=== PATIENT | female | born 1975 | race Caucasian/White ===

== ENCOUNTER 2016-09-25 05:01 | Emergency (ER) | payer MEDICAID ==
[~2016-09-25] VITALS: Ht 162.6 cm; Wt 76.0 kg
[~2016-09-25 05:01] MED LIST: GABA100C8 PO; LORA-446 PO; NYST15CR2 TP; OMEP-110 PO; POLY17PO5 PO; RISP2TAB35 PO; ZIPR20CA2 PO
[2016-09-25] MEDS ORDERED: OXYC-302 PO (05:27)
[2016-09-25] MEDS ORDERED: TRAZ100T15 PO (05:27)
[2016-09-25] MEDS ORDERED: VENL75CA PO (05:27)
[2016-09-25] MEDS ORDERED: HYDR25CA PO (05:27)
[2016-09-25] MEDS ORDERED: PRAZ1CAP2 PO (05:27)
[2016-09-25 06:00] LABS: BLOOD UREA NITROGEN 11 mg/dL (7-18)
[2016-09-25 06:02] LABS: ASPARTATE AMINO TRANSFERASE 40 U/L (15-37)
[2016-09-25 07:55] VITALS: BP 137/91
== END 2016-09-25 07:58 | disposition home or self-care (01) ==
LOC: ED 06:31
DX: R10.13 Epigastric pain (principal); I10 Essential (primary) hypertension; F29 Unspecified psychosis not due to a substance or known physiological condition; F32.9 Major depressive disorder, single episode, unspecified; Z88.0 Allergy status to penicillin; Z88.8 Allergy status to other drugs, medicaments and biological substances; Z88.5 Allergy status to narcotic agent
CPT/HCPCS: 36415; 74022; 76700; 80053; 83690; 85025; 93005

== ENCOUNTER 2017-03-18 18:52 | Emergency (ER) | payer MEDICAID ==
[~2017-03-18] VITALS: Ht 162.6 cm; Wt 73.0 kg
[~2017-03-18 18:52] MED LIST changes: +GABA-826 PO; -GABA100C8 PO; +HYDR25CA PO; +OXYC-302 PO; +PRAZ1CAP2 PO; +TRAZ100T15 PO; +VENL75CA PO
[2017-03-18 19:37] LABS: HEMATOCRIT 38.1 % (34.6-47.8); HEMOGLOBIN 12.8 g/dL (11.7-16.4); WHITE BLOOD COUNT 7.6 x10^3/uL (3.4-10)
[2017-03-18] MEDS ORDERED: LORA2TAB INJ (19:43)
[2017-03-18] MEDS ORDERED: NAPR250T6 PO (19:43)
[2017-03-18] MEDS ORDERED: CYCL5TAB PO (19:43)
[2017-03-18 19:53] LABS: BLOOD UREA NITROGEN 11 mg/dL (7-18)
[2017-03-18] MEDS ORDERED: LEVETIRACETAM 500 MG TABLET PO ONE (20:00)
[2017-03-18 21:10] VITALS: BP 128/79
== END 2017-03-18 21:25 | disposition home or self-care (01) ==
LOC: ED 21:19
DX: G40.909 Epilepsy, unspecified, not intractable, without status epilepticus (principal); I10 Essential (primary) hypertension; Z90.49 Acquired absence of other specified parts of digestive tract; F15.10 Other stimulant abuse, uncomplicated
CPT/HCPCS: 36415; 80048; 82040; 82550; 83735; 85025; 93005; 99285

== ENCOUNTER 2017-04-05 15:30 | Observation (INO) | payer MEDICAID ==
[~2017-04-05] VITALS: Ht 162.6 cm; Wt 77.3 kg
[~2017-04-05 15:30] MED LIST changes: +CYCL5TAB PO; +LORA2TAB INJ; +NAPR250T6 PO
[2017-04-05 16:29] LABS: HEMATOCRIT 40.9 % (34.6-47.8); HEMOGLOBIN 13.9 g/dL (11.7-16.4); WHITE BLOOD COUNT 6.8 x10^3/uL (3.4-10)
[2017-04-05] MEDS ORDERED: LORazepam 1MG TABLET PO ONE (16:30)
[2017-04-05 16:40] LABS: BLOOD UREA NITROGEN 10 mg/dL (7-18)
[2017-04-05] MEDS ORDERED: LORazepam 1MG TABLET ONE (16:43)
[2017-04-05 16:45] LABS: ACETAMINOPHEN < 2 mcg/mL (10-30)
[2017-04-05 16:46] LABS: DAU SCREEN DISCLAIMER
[2017-04-05] MEDS ORDERED: LORazepam 2 MG/ML, 1ML IM PRN (21:00)
[2017-04-05] MEDS ORDERED: OLANZAPINE 10 MG TABLET PO PRN (21:00)
[2017-04-05] MEDS ORDERED: DOCUSATE 100 MG CAPSULE PO PRN (21:00)
[2017-04-05 21:09] VITALS: BP 123/79
[2017-04-05] MEDS: ACETAMINOPHEN 325 MG TABLET PO PRN (22:01)
[2017-04-06 08:19] VITALS: BP 106/69
[2017-04-06] MEDS ORDERED: NICOTINE 14MG/24 HR PATCH.TD24 TD SCH ×3 (09:00)
[2017-04-06] MEDS ORDERED: NICOTINE 21 MG/24 HR PATCH.TD24 TD SCH ×6 (09:00)
[2017-04-06] MEDS: ACETAMINOPHEN 325 MG TABLET PO PRN (09:25)
== END 2017-04-06 13:50 ==
LOC: ED 16:19 → EDIP 19:36 → 3E 21:07
PROVIDERS: ADMIT Family Medicine; ATTEND Family Medicine
DX: F23 Brief psychotic disorder (principal); F15.10 Other stimulant abuse, uncomplicated; F25.9 Schizoaffective disorder, unspecified; F41.0 Panic disorder [episodic paroxysmal anxiety]; F41.1 Generalized anxiety disorder; I10 Essential (primary) hypertension; R41.82 Altered mental status, unspecified; G40.909 Epilepsy, unspecified, not intractable, without status epilepticus; Z91.14 Patient's other noncompliance with medication regimen; Z91.5 Personal history of self-harm
CPT/HCPCS: 36415; 80048; 80307; 80329; 82040; 84703; 85025; 96372; 99285; G0378; J2060; G0479; G0480

== ENCOUNTER 2017-07-30 04:54 | Emergency (ER) | payer MEDICAID ==
[~2017-07-30] VITALS: Ht 162.6 cm; Wt 77.0 kg
[2017-07-30] MEDS ORDERED: LORazepam 1MG TABLET ONE (05:28)
[2017-07-30] MEDS ORDERED: METHOCARBAMOL 750 MG TABLET ONE (05:28)
[2017-07-30] MEDS ORDERED: LORazepam 1MG TABLET PO ONE (05:30)
[2017-07-30] MEDS ORDERED: METHOCARBAMOL 750 MG TABLET PO ONE (05:30)
[2017-07-30 05:43] LABS: BASOPHILS % (AUTO) 0 % (0-1); EOSINOPHILS # (AUTO) 0.13 x10^3/uL (0-0.4); EOSINOPHILS % (AUTO) 1 % (1-7); LYMPHOCYTES # (AUTO) 2.21 x10^3/uL (1-3.4); LYMPHOCYTES % (AUTO) 21 % (22-44); MD NO; MEAN CORPUSCULAR HEMOGLOBIN 28.7 pg (27.0-34.8); MEAN CORPUSCULAR HGB CONC 33.3 g/dL (32.4-35.8); MEAN CORPUSCULAR VOLUME 86.2 fL (80-100); MEAN PLATELET VOLUME 6.9 fL (7.4-10.4); MONOCYTES % (AUTO) 6 % (2-9); NEUTROPHILS # (AUTO) 7.88 x10^3/uL (1.8-6.8); NEUTROPHILS % (AUTO) 73 % (42-75); PLATELET COUNT 423 x10^3/uL (130-400); RED BLOOD COUNT 4.65 x10^6/uL (3.82-5.3); RED CELL DISTRIBUTION WIDTH 14.3 % (9.6-15.2)
[2017-07-30 05:53] LABS: ALBUMIN 4.1 g/dL (3.4-5.0); ANION GAP 6 mmol/L (5-15); CALCIUM 8.9 mg/dL (8.5-10.1); CHLORIDE 98 mmol/L (98-107); CREATININE 0.48 mg/dL (0.55-1.02)
[2017-07-30 07:24] VITALS: BP 132/78
== END 2017-07-30 07:29 | disposition home or self-care (01) ==
LOC: ED 05:28
DX: F22 Delusional disorders (principal); F23 Brief psychotic disorder; F41.1 Generalized anxiety disorder; Z76.0 Encounter for issue of repeat prescription; G71.0 Muscular dystrophy
CPT/HCPCS: 36415; 80048; 82040; 85025; 99284

== ENCOUNTER 2017-09-28 17:53 | Observation (INO) | payer MEDICAID ==
[~2017-09-28] VITALS: Ht 162.6 cm; Wt 82.0 kg
[2017-09-28 18:39] LABS: BASOPHILS # (AUTO) 0.04 x10^3/uL (0-0.1); BASOPHILS % (AUTO) 1 % (0-1); EOSINOPHILS # (AUTO) 0.13 x10^3/uL (0-0.4); EOSINOPHILS % (AUTO) 2 % (1-7); LYMPHOCYTES # (AUTO) 2.06 x10^3/uL (1-3.4); LYMPHOCYTES % (AUTO) 27 % (22-44); MD NO; MEAN CORPUSCULAR HEMOGLOBIN 29.7 pg (27.0-34.8); MEAN CORPUSCULAR VOLUME 87.4 fL (80-100); MEAN PLATELET VOLUME 7.3 fL (7.4-10.4); MONOCYTES # (AUTO) 0.58 x10^3/uL (0.2-0.8); MONOCYTES % (AUTO) 8 % (2-9); NEUTROPHILS # (AUTO) 4.94 x10^3/uL (1.8-6.8); NEUTROPHILS % (AUTO) 64 % (42-75); PLATELET COUNT 469 x10^3/uL (130-400); RED BLOOD COUNT 4.02 x10^6/uL (3.82-5.3); RED CELL DISTRIBUTION WIDTH 14.8 % (9.6-15.2)
[2017-09-28 18:51] LABS: ALANINE AMINOTRANSFERASE 35 U/L (12-78); ALBUMIN 3.5 g/dL (3.4-5.0); ANION GAP 10 mmol/L (5-15); CALCIUM 8.1 mg/dL (8.5-10.1); CHLORIDE 103 mmol/L (98-107)
[2017-09-28 18:52] LABS: SALICYLATE LEVEL < 1.7 mg/dL (2.8-20.0)
[2017-09-28 18:55] LABS: AMPHETAMINE SCREEN, URINE Positive (Negative); BARBITURATE SCREEN, URINE Negative (Negative); BENZODIAZEPINE SCREEN, URINE Negative (Negative); CANNABINOID SCREEN, URINE Negative (Negative); COCAINE SCREEN, URINE Negative (Negative)
[2017-09-28 18:56] LABS: ALKALINE PHOSPHATASE 64 U/L (45-117); BILIRUBIN,TOTAL 0.4 mg/dL (0.2-1.0); CREATININE 0.54 mg/dL (0.55-1.02); TOTAL PROTEIN 7.4 g/dL (6.4-8.2)
[2017-09-28 18:56] LABS: METHADONE SCREEN, URINE Negative (Negative); OPIATE SCREEN, URINE Negative (Negative)
[2017-09-28 18:57] LABS: ACETAMINOPHEN < 2 mcg/mL (10-30)
[2017-09-28] MEDS ORDERED: OLAN20TA3 PO (19:34)
[2017-09-28] MEDS ORDERED: LISI-167 PO (19:34)
[2017-09-28] MEDS ORDERED: CYCL-259 PO (19:34)
[2017-09-28] MEDS ORDERED: CLOB15CR19 TD (19:34)
[2017-09-28] MEDS ORDERED: OXCA300T3 PO (19:34)
[2017-09-28] MEDS ORDERED: BENZ200C48 PO (19:34)
[2017-09-28] MEDS ORDERED: LEVE100020 PO (19:34)
[2017-09-28] MEDS ORDERED: POTASSIUM CHLORIDE 20 MEQ TAB.ER.PRT PO ONE (21:30)
[2017-09-28] MEDS ORDERED: POTASSIUM CHLORIDE 20 MEQ TAB.ER.PRT ONE (21:33)
[2017-09-28] MEDS ORDERED: ACETAMINOPHEN 325 MG TABLET PO PRN (23:00)
[2017-09-28] MEDS ORDERED: ONDANSETRON ODT 4 MG PO PRN (23:00)
[2017-09-29 00:16] VITALS: BP 134/92
[2017-09-29 07:53] VITALS: BP 130/80
[2017-09-29] MEDS: BENZONATATE 100 MG CAPSULE PO SCH ×3 (08:57→20:38)
[2017-09-29] MEDS: LEVETIRACETAM 500 MG TABLET PO SCH ×2 (08:58→20:38)
[2017-09-29] MEDS: CYCLOBENZAPRINE 10 MG TABLET PO SCH ×3 (08:58→20:38)
[2017-09-29] MEDS: OLANZAPINE 10 MG TABLET PO SCH (08:58)
[2017-09-29] MEDS: LISINOPRIL 10 MG TABLET PO SCH (08:59)
[2017-09-29] MEDS: OXCARBAZEPINE 300MG TABLET PO SCH ×2 (08:59→20:38)
[2017-09-29] MEDS: CLOBETASOL PROPIONATE CRM 0.05%, 15GM TP SCH ×2 (09:00→20:42)
[2017-09-29 14:25] LABS: ANION GAP 10 mmol/L (5-15); CALCIUM 8.3 mg/dL (8.5-10.1); CHLORIDE 106 mmol/L (98-107)
[2017-09-29 14:26] LABS: CREATININE 0.59 mg/dL (0.55-1.02)
[2017-09-29 19:49] VITALS: BP 116/80
[2017-09-30 08:23] VITALS: BP 116/79
[2017-09-30] MEDS: CYCLOBENZAPRINE 10 MG TABLET PO SCH ×2 (09:00→16:33)
[2017-09-30] MEDS: CLOBETASOL PROPIONATE CRM 0.05%, 15GM TP SCH (09:00)
[2017-09-30] MEDS: BENZONATATE 100 MG CAPSULE PO SCH ×2 (09:25→16:33)
[2017-09-30] MEDS: LEVETIRACETAM 500 MG TABLET PO SCH (09:25)
[2017-09-30] MEDS: OLANZAPINE 10 MG TABLET PO SCH (09:26)
[2017-09-30] MEDS: OXCARBAZEPINE 300MG TABLET PO SCH (09:26)
[2017-09-30] MEDS: LISINOPRIL 10 MG TABLET PO SCH (09:26)
== END 2017-09-30 15:45 ==
LOC: ED 19:52 → EDIP 22:24 → 3E 09-29 00:08
PROVIDERS: ADMIT Hospitalist; ATTEND Hospitalist
DX: R45.851 Suicidal ideations (principal); E87.6 Hypokalemia; F25.9 Schizoaffective disorder, unspecified; G40.909 Epilepsy, unspecified, not intractable, without status epilepticus; I10 Essential (primary) hypertension; F39 Unspecified mood [affective] disorder; F44.5 Conversion disorder with seizures or convulsions; Z91.5 Personal history of self-harm
CPT/HCPCS: 36415; 80048; 80053; 80307; 80329; 84703; 85025; 99285; G0378; G0480

== ENCOUNTER 2017-12-19 09:34 | Emergency (ER) | payer MEDICAID ==
[~2017-12-19] VITALS: Ht 162.6 cm; Wt 78.0 kg
[~2017-12-19 09:34] MED LIST changes: +BENZ200C48 PO; +CLOB15CR19 TD; +CYCL-259 PO; +LEVE100020 PO; +LISI-167 PO; +OLAN20TA3 PO; +OXCA300T3 PO
[2017-12-19] MEDS ORDERED: DEXTROSE 50%, 50ML SYRINGE IVPush ONE (10:30)
[2017-12-19] MEDS ORDERED: KETOROLAC 30 MG/1 ML IM ONE (10:30)
[2017-12-19] MEDS ORDERED: DEXTROSE 10% 250 ML IV SCH (10:30)
[2017-12-19] MEDS ORDERED: HYDROcodone/APAP 5/325 TABLET PO ONE (10:30)
[2017-12-19] MEDS ORDERED: KETOROLAC 30 MG/1 ML ONE (10:35)
[2017-12-19 10:47] LABS: BASOPHILS # (AUTO) 0.02 x10^3/uL (0-0.1); BASOPHILS % (AUTO) 0 % (0-1); EOSINOPHILS # (AUTO) 0.04 x10^3/uL (0-0.4); EOSINOPHILS % (AUTO) 1 % (1-7); LYMPHOCYTES # (AUTO) 1.36 x10^3/uL (1-3.4); LYMPHOCYTES % (AUTO) 19 % (22-44); MD NO; MEAN CORPUSCULAR HEMOGLOBIN 27.8 pg (27.0-34.8); MEAN CORPUSCULAR HGB CONC 33.8 g/dL (32.4-35.8); MEAN CORPUSCULAR VOLUME 82.2 fL (80-100); MEAN PLATELET VOLUME 6.5 fL (7.4-10.4); MONOCYTES # (AUTO) 0.55 x10^3/uL (0.2-0.8); MONOCYTES % (AUTO) 8 % (2-9); NEUTROPHILS # (AUTO) 5.31 x10^3/uL (1.8-6.8); NEUTROPHILS % (AUTO) 73 % (42-75); PLATELET COUNT 609 x10^3/uL (130-400); RED BLOOD COUNT 4.49 x10^6/uL (3.82-5.3); RED CELL DISTRIBUTION WIDTH 14.3 % (9.6-15.2)
[2017-12-19 10:57] LABS: ALBUMIN 3.5 g/dL (3.4-5.0); ANION GAP 8 mmol/L (5-15); CALCIUM 8.8 mg/dL (8.5-10.1); CHLORIDE 106 mmol/L (98-107); CREATININE 0.58 mg/dL (0.55-1.02); SALICYLATE LEVEL 1.9 mg/dL (2.8-20.0)
[2017-12-19 11:00] LABS: HCG UR SG 1.011 (1.003-1.030)
[2017-12-19 11:06] LABS: ACETAMINOPHEN < 2 mcg/mL (10-30)
[2017-12-19 11:24] LABS: AMPHETAMINE SCREEN, URINE Positive (Negative); BARBITURATE SCREEN, URINE Negative (Negative); BENZODIAZEPINE SCREEN, URINE Negative (Negative); CANNABINOID SCREEN, URINE Negative (Negative); COCAINE SCREEN, URINE Negative (Negative); METHADONE SCREEN, URINE Negative (Negative); OPIATE SCREEN, URINE Negative (Negative)
[2017-12-19] MEDS ORDERED: LORA-446 PO (14:24)
[2017-12-19] MEDS ORDERED: METH750T87 PO (14:24)
[2017-12-19] MEDS ORDERED: TRAZ100T15 PO (14:24)
[2017-12-19] MEDS ORDERED: BENZONATATE 200 MG PO SCH (16:00)
[2017-12-19] MEDS ORDERED: CYCLOBENZAPRINE 10 MG TABLET ONE (16:57)
[2017-12-19] MEDS ORDERED: ACETAMINOPHEN 325 MG TABLET ONE ×2 (16:57→22:52)
[2017-12-19] MEDS: CYCLOBENZAPRINE 10 MG TABLET PO PRN (16:59)
[2017-12-19] MEDS: ACETAMINOPHEN 325 MG TABLET PO PRN ×2 (16:59→22:56)
[2017-12-19] MEDS ORDERED: BENZONATATE 100 MG CAPSULE ONE (20:07)
[2017-12-19] MEDS ORDERED: LEVETIRACETAM 500 MG TABLET ONE (20:08)
[2017-12-19] MEDS: BENZONATATE 100 MG CAPSULE PO SCH (20:15)
[2017-12-19] MEDS: LEVETIRACETAM 500 MG TABLET PO SCH (20:15)
[2017-12-19] MEDS: OXCARBAZEPINE 300MG TABLET PO SCH (22:19)
[2017-12-20] MEDS ORDERED: CYCLOBENZAPRINE 10 MG TABLET ONE (03:21)
[2017-12-20] MEDS: CYCLOBENZAPRINE 10 MG TABLET PO PRN (03:24)
[2017-12-20] MEDS ORDERED: ACETAMINOPHEN 325 MG TABLET ONE (04:53)
[2017-12-20] MEDS: ACETAMINOPHEN 325 MG TABLET PO PRN ×2 (04:56→06:16)
[2017-12-20] MEDS ORDERED: LEVETIRACETAM 500 MG TABLET ONE (07:39)
[2017-12-20] MEDS ORDERED: OLANZAPINE 10 MG TABLET ONE (07:39)
[2017-12-20] MEDS ORDERED: BENZONATATE 100 MG CAPSULE ONE (07:39)
[2017-12-20] MEDS ORDERED: LISINOPRIL 10 MG TABLET ONE (07:39)
[2017-12-20] MEDS: OXCARBAZEPINE 300MG TABLET PO SCH (08:22)
[2017-12-20] MEDS: LEVETIRACETAM 500 MG TABLET PO SCH (08:22)
[2017-12-20 08:23] VITALS: BP 107/72
[2017-12-20] MEDS: BENZONATATE 100 MG CAPSULE PO SCH (08:23)
[2017-12-20] MEDS ORDERED: OLANZAPINE 10 MG TABLET PO SCH (09:00)
[2017-12-20] MEDS ORDERED: LISINOPRIL 10 MG TABLET PO SCH (09:00)
[2017-12-20] MEDS ORDERED: LORazepam 1MG TABLET PO PRN (14:00)
[2017-12-20] MEDS ORDERED: METHOCARBAMOL 750 MG TABLET PO SCH (17:00)
[2017-12-20] MEDS ORDERED: TRAZODONE 100MG TABLET PO SCH (21:00)
== END 2017-12-20 15:02 ==
LOC: ED 11:41 → UNDOADMOB 13:05 → EDIP 13:05
DX: F15.10 Other stimulant abuse, uncomplicated (principal)
CPT/HCPCS: 36415; 80048; 80307; 80329; 81025; 82040; 85025; 96372; 99285; J1885; G0480

== ENCOUNTER 2018-01-02 10:11 | Emergency (ER) | payer MEDICAID ==
[~2018-01-02] VITALS: Ht 162.6 cm; Wt 75.0 kg
[~2018-01-02 10:11] MED LIST changes: +METH750T87 PO
[2018-01-02 10:17] VITALS: BP 136/78
[2018-01-02] MEDS ORDERED: LORazepam 1MG TABLET ONE ×2 (10:45→12:21)
[2018-01-02] MEDS ORDERED: LORazepam 1MG TABLET PO ONE ×2 (11:00→12:00)
== END 2018-01-02 13:30 | disposition home or self-care (01) ==
LOC: ED 13:21
DX: F15.129 Other stimulant abuse with intoxication, unspecified (principal); I10 Essential (primary) hypertension; F41.1 Generalized anxiety disorder; F17.210 Nicotine dependence, cigarettes, uncomplicated; Z59.0 Homelessness
CPT/HCPCS: 82962; 99283

== ENCOUNTER 2018-01-24 21:26 | Emergency (ER) | payer MEDICAID ==
[~2018-01-24] VITALS: Ht 162.6 cm; Wt 76.0 kg
[~2018-01-24 21:26] MED LIST changes: +TRAZ-137 PO; -TRAZ100T15 PO
[2018-01-24] MEDS ORDERED: ONDANSETRON 2MG/ML, 2ML ONE (21:43)
[2018-01-24 21:49] LABS: BASOPHILS # (AUTO) 0.02 x10^3/uL (0-0.1); BASOPHILS % (AUTO) 0 % (0-1); EOSINOPHILS # (AUTO) 0.05 x10^3/uL (0-0.4); EOSINOPHILS % (AUTO) 1 % (1-7); LYMPHOCYTES # (AUTO) 1.73 x10^3/uL (1-3.4); LYMPHOCYTES % (AUTO) 24 % (22-44); MD NO; MEAN CORPUSCULAR HEMOGLOBIN 27.5 pg (27.0-34.8); MEAN CORPUSCULAR HGB CONC 34.5 g/dL (32.4-35.8); MEAN CORPUSCULAR VOLUME 79.8 fL (80-100); MEAN PLATELET VOLUME 6.5 fL (7.4-10.4); MONOCYTES # (AUTO) 0.86 x10^3/uL (0.2-0.8); MONOCYTES % (AUTO) 12 % (2-9); NEUTROPHILS # (AUTO) 4.57 x10^3/uL (1.8-6.8); NEUTROPHILS % (AUTO) 63 % (42-75); PLATELET COUNT 550 x10^3/uL (130-400); RED BLOOD COUNT 4.44 x10^6/uL (3.82-5.3); RED CELL DISTRIBUTION WIDTH 16.1 % (9.6-15.2)
[2018-01-24] MEDS ORDERED: ONDANSETRON 2MG/ML, 2ML IVPush ONE (22:00)
[2018-01-24] MEDS ORDERED: LEVETIRACETAM 1,000 MG in SODIUM CHLORIDE 0.9% 100 ML IV ONE (22:00)
[2018-01-24 22:02] LABS: ALBUMIN 3.6 g/dL (3.4-5.0); ANION GAP 12 mmol/L (5-15); CHLORIDE 105 mmol/L (98-107); CREATININE 0.59 mg/dL (0.55-1.02)
[2018-01-24 22:41] VITALS: BP 138/72
[2018-01-24 22:59] LABS: AMPHETAMINE SCREEN, URINE Positive (Negative); BARBITURATE SCREEN, URINE Negative (Negative); BENZODIAZEPINE SCREEN, URINE Negative (Negative); CANNABINOID SCREEN, URINE Negative (Negative); COCAINE SCREEN, URINE Negative (Negative); METHADONE SCREEN, URINE Negative (Negative); OPIATE SCREEN, URINE Negative (Negative)
== END 2018-01-24 23:30 | disposition home or self-care (01) ==
LOC: ED 22:28
DX: G40.319 Generalized idiopathic epilepsy and epileptic syndromes, intractable, without status epilepticus (principal); F15.20 Other stimulant dependence, uncomplicated; Z72.9 Problem related to lifestyle, unspecified; I10 Essential (primary) hypertension; F32.9 Major depressive disorder, single episode, unspecified; F17.200 Nicotine dependence, unspecified, uncomplicated; Z90.49 Acquired absence of other specified parts of digestive tract
CPT/HCPCS: 36415; 80048; 80307; 82040; 84703; 85025; 96374; 96375; 99284; J1953; J2405

== ENCOUNTER 2018-03-14 14:39 | Emergency (ER) | payer MEDICAID ==
[~2018-03-14] VITALS: Ht 162.6 cm; Wt 74.8 kg
[2018-03-14 15:13] LABS: BASOPHILS # (AUTO) 0.03 x10^3/uL (0-0.1); BASOPHILS % (AUTO) 0 % (0-1); EOSINOPHILS # (AUTO) 0.05 x10^3/uL (0-0.4); EOSINOPHILS % (AUTO) 1 % (1-7); LYMPHOCYTES # (AUTO) 1.39 x10^3/uL (1-3.4); LYMPHOCYTES % (AUTO) 20 % (22-44); MD NO; MEAN CORPUSCULAR HEMOGLOBIN 27.1 pg (27.0-34.8); MEAN CORPUSCULAR HGB CONC 33.6 g/dL (32.4-35.8); MEAN CORPUSCULAR VOLUME 80.5 fL (80-100); MEAN PLATELET VOLUME 6.9 fL (7.4-10.4); MONOCYTES # (AUTO) 0.44 x10^3/uL (0.2-0.8); MONOCYTES % (AUTO) 6 % (2-9); NEUTROPHILS # (AUTO) 4.95 x10^3/uL (1.8-6.8); NEUTROPHILS % (AUTO) 72 % (42-75); PLATELET COUNT 533 x10^3/uL (130-400); RED CELL DISTRIBUTION WIDTH 15.4 % (9.6-15.2)
[2018-03-14 15:22] LABS: ALANINE AMINOTRANSFERASE 22 U/L (12-78); ALBUMIN 3.5 g/dL (3.4-5.0); ANION GAP 8 mmol/L (5-15); CALCIUM 8.7 mg/dL (8.5-10.1); CHLORIDE 106 mmol/L (98-107); CREATININE 0.55 mg/dL (0.55-1.02)
[2018-03-14 15:27] LABS: ALKALINE PHOSPHATASE 80 U/L (45-117); BILIRUBIN,TOTAL 0.1 mg/dL (0.2-1.0); TOTAL PROTEIN 8.1 g/dL (6.4-8.2)
[2018-03-14 16:05] LABS: MICROSCOPIC NOT IND
[2018-03-14 16:11] LABS: CULTURE INDICATED? NO
[2018-03-14 16:30] VITALS: BP 128/86
== END 2018-03-14 17:30 | disposition home or self-care (01) ==
LOC: ED 16:28
DX: F41.1 Generalized anxiety disorder (principal); F15.10 Other stimulant abuse, uncomplicated; R53.81 Other malaise; I10 Essential (primary) hypertension; G40.909 Epilepsy, unspecified, not intractable, without status epilepticus; G35 Multiple sclerosis; Z91.14 Patient's other noncompliance with medication regimen
CPT/HCPCS: 36415; 80053; 81003; 84703; 85025; 99284

== ENCOUNTER 2018-10-16 22:24 | Emergency (ER) | payer MEDICAID ==
[~2018-10-16] VITALS: Ht 162.6 cm; Wt 69.0 kg
--- NOTE | 2018-10-16 22:45 | NUR ---
PT BROUGHT TO ROOM AND PLACED ON MONITOR. PT WAS UPSTAIRS VISITING BOYFRIEND WHO WAS YELLING AT PT. PT DECIDED TO SMOKE METH TODAY DUE TO HIS RUDENESS TO HER. PT TWITCHING CONSTANTLY OF ARMS AND LEGS. HAVING DIFFICULTY SPEAKING DUE TO GRINDING OF MOUTH.
--- NOTE | 2018-10-16 22:59 | NUR ---
PA AT BEDSIDE.
[2018-10-16] MEDS ORDERED: LORazepam 2 MG/ML, 1ML IM ONE (23:00)
[2018-10-16] MEDS ORDERED: LORazepam 2 MG/ML, 1ML ONE (23:02)
--- NOTE | 2018-10-16 23:06 | NUR ---
PT MEDICATED WITH 1MG ATIVAN IM TO HELP RELAX
--- NOTE | 2018-10-17 00:02 | NUR ---
PT SLEEPING AT THIS TIME. FREQUENT TWITCHING HAS SUBSIDED. VSS.
--- NOTE | 2018-10-17 01:08 | NUR ---
PT REMAINS SLEEPING. VITALS STABLE.
--- NOTE | 2018-10-17 02:18 | NUR ---
PT REMAINS SLEEPING. ATTEMPTED TO WAKE PT, OPES EYES BRIEFLY AND MOVES AROUND IN BED. VSS.
[2018-10-17 04:49] VITALS: BP 118/74
--- NOTE | 2018-10-17 04:49 | NUR ---
PT ABLE TO STAND AND AMBULATE. DC PAPERWORK GIVEN. TAXI VOUCHER GIVEN
== END 2018-10-17 04:51 | disposition home or self-care (01) ==
LOC: ED 23:39
DX: F19.959 Other psychoactive substance use, unspecified with psychoactive substance-induced psychotic disorder, unspecified (principal); F41.9 Anxiety disorder, unspecified; F17.210 Nicotine dependence, cigarettes, uncomplicated; F15.921 Other stimulant use, unspecified with intoxication delirium; G40.909 Epilepsy, unspecified, not intractable, without status epilepticus; I10 Essential (primary) hypertension
CPT/HCPCS: 96372; 99283; J2060

== ENCOUNTER 2019-06-19 14:09 | Emergency (ER) | payer MEDICAID ==
[~2019-06-19] VITALS: Ht 162.6 cm; Wt 70.8 kg
[2019-06-19 14:28] VITALS: BP 172/106
--- NOTE | 2019-06-19 15:05 | NUR ---
PT SITTING ON EDGE OF GURNEY AWAKE & MILDLY ANXIOUS BUT NAD, RESPONDS APPROP TO STAFF, FRIEND AT BS, COMFORT MEASURES PROVIDED, CALL LIGHT WITHIN REACHM
[2019-06-19] MEDS ORDERED: ONDANSETRON ODT 4 MG ONE (15:29)
[2019-06-19] MEDS ORDERED: LORazepam 2 MG/ML, 1ML IM ONE (15:30)
[2019-06-19] MEDS ORDERED: ONDANSETRON ODT 4 MG PO ONE (15:30)
[2019-06-19] MEDS ORDERED: LORazepam 2 MG/ML, 1ML ONE (15:30)
[2019-06-19 15:42] LABS: BASOPHILS # (AUTO) 0.02 x10^3/uL (0-0.1); BASOPHILS % (AUTO) 0 % (0-1); EOSINOPHILS # (AUTO) 0.12 x10^3/uL (0-0.4); EOSINOPHILS % (AUTO) 2 % (1-7); LYMPHOCYTES # (AUTO) 1.82 x10^3/uL (1-3.4); LYMPHOCYTES % (AUTO) 25 % (22-44); MD NO; MEAN CORPUSCULAR HEMOGLOBIN 29.2 pg (27.0-34.8); MEAN CORPUSCULAR HGB CONC 32.7 g/dL (32.4-35.8); MEAN CORPUSCULAR VOLUME 89.3 fL (80-100); MEAN PLATELET VOLUME 7.3 fL (7.4-10.4); MONOCYTES # (AUTO) 0.45 x10^3/uL (0.2-0.8); MONOCYTES % (AUTO) 6 % (2-9); NEUTROPHILS # (AUTO) 4.84 x10^3/uL (1.8-6.8); NEUTROPHILS % (AUTO) 67 % (42-75); PLATELET COUNT 495 x10^3/uL (130-400); RED BLOOD COUNT 4.18 x10^6/uL (3.82-5.3)
[2019-06-19 15:44] LABS: MICROSCOPIC AUTO
[2019-06-19 15:46] LABS: CULTURE INDICATED? YES
[2019-06-19 15:54] LABS: ALANINE AMINOTRANSFERASE 18 U/L (12-78); ANION GAP 7 mmol/L (5-15); CALCIUM 8.8 mg/dL (8.5-10.1); CHLORIDE 112 mmol/L (98-107); CREATININE 0.51 mg/dL (0.55-1.02)
[2019-06-19 15:55] LABS: ALBUMIN 3.6 g/dL (3.4-5.0)
[2019-06-19 15:57] LABS: ALKALINE PHOSPHATASE 68 U/L (45-117); BILIRUBIN,TOTAL 0.2 mg/dL (0.2-1.0); TOTAL PROTEIN 7.6 g/dL (6.4-8.2)
--- NOTE | 2019-06-19 16:00 | NUR ---
PT CALMLY RESTING ON GURNEY WITH EYES CLOSED, NAD, RESPONDS APPROP TO STAFF, NO NEEDS AT THIS TIME, CALL LIGHT WITHIN REACH.
--- NOTE | 2019-06-19 16:28 | NUR ---
Patient given discharge instructions and Rx, they have confirmed that they understand the instructions. Patient ambulatory with steady gait.
== END 2019-06-19 16:29 | disposition home or self-care (01) ==
LOC: ED 15:44
DX: F15.129 Other stimulant abuse with intoxication, unspecified (principal); R05 Cough; K08.89 Other specified disorders of teeth and supporting structures; I10 Essential (primary) hypertension; F17.200 Nicotine dependence, unspecified, uncomplicated; Z90.49 Acquired absence of other specified parts of digestive tract
CPT/HCPCS: 36415; 71045; 80053; 81001; 85025; 87086; 96372; 99284; J2060; Q0162

== ENCOUNTER 2019-07-18 19:25 | Emergency (ER) | payer MEDICAID ==
[~2019-07-18] VITALS: Ht 170.2 cm; Wt 86.0 kg
--- NOTE | 2019-07-18 19:38 | NUR ---
PT BIB EMS FOR COMBATIVE BEHAVIOR AND METH USE. PT BROKE CHAIR IN AMBO AND BANGED HEAD AGAINST WALL. PT MEDICATED 300 MG KETAMINE, 2MG VERSED. 4 POINT RESTRAINTS BY SECURITY. PT IS SLEEPING, NOT ALERT, OR RESPONDING TO VERBAL COMMAND. MD AT BEDSIDE. VS STABLE. 2L 02. NO INJURY NOTED.
[2019-07-18 19:54] LABS: BASOPHILS # (AUTO) 0.02 x10^3/uL (0-0.1); BASOPHILS % (AUTO) 0 % (0-1); EOSINOPHILS # (AUTO) 0.24 x10^3/uL (0-0.4); EOSINOPHILS % (AUTO) 2 % (1-7); LYMPHOCYTES # (AUTO) 1.73 x10^3/uL (1-3.4); LYMPHOCYTES % (AUTO) 16 % (22-44); MD NO; MEAN CORPUSCULAR HEMOGLOBIN 28.6 pg (27.0-34.8); MEAN CORPUSCULAR HGB CONC 33.2 g/dL (32.4-35.8); MEAN PLATELET VOLUME 7.2 fL (7.4-10.4); MONOCYTES # (AUTO) 0.53 x10^3/uL (0.2-0.8); MONOCYTES % (AUTO) 5 % (2-9); NEUTROPHILS # (AUTO) 8.49 x10^3/uL (1.8-6.8); NEUTROPHILS % (AUTO) 77 % (42-75); PLATELET COUNT 446 x10^3/uL (130-400); RED BLOOD COUNT 4.44 x10^6/uL (3.82-5.3); RED CELL DISTRIBUTION WIDTH 14.1 % (9.6-15.2)
[2019-07-18 20:07] LABS: ALBUMIN 3.9 g/dL (3.4-5.0); ANION GAP 8 mmol/L (5-15); CALCIUM 8.8 mg/dL (8.5-10.1); CHLORIDE 108 mmol/L (98-107); SALICYLATE LEVEL < 1.7 mg/dL (2.8-20.0)
--- NOTE | 2019-07-18 20:18 | NUR ---
FAIZA WALTERS W ASSIST FROM RN
[2019-07-18 20:19] LABS: ALANINE AMINOTRANSFERASE 18 U/L (12-78); ALKALINE PHOSPHATASE 60 U/L (45-117); BILIRUBIN,TOTAL 0.5 mg/dL (0.2-1.0); CREATININE 0.51 mg/dL (0.55-1.02); TOTAL PROTEIN 7.6 g/dL (6.4-8.2)
[2019-07-18 20:23] LABS: CULTURE INDICATED? YES; MICROSCOPIC INDICATED
[2019-07-18 20:40] LABS: AMPHETAMINE SCREEN, URINE Positive (Negative); BARBITURATE SCREEN, URINE Negative (Negative); BENZODIAZEPINE SCREEN, URINE Positive (Negative); CANNABINOID SCREEN, URINE Negative (Negative); COCAINE SCREEN, URINE Negative (Negative); METHADONE SCREEN, URINE Negative (Negative); OPIATE SCREEN, URINE Negative (Negative)
--- NOTE | 2019-07-18 20:57 | NUR ---
REPORT TO ROSY
--- NOTE | 2019-07-18 21:37 | NUR ---
PT SLEEPING ON GURNEY, VSS. PT TAKEN OUT OF LEFT ARM AND RIGHT LEG RESTRAINT AT THIS TIME. WILL CONT TO MONITOR.
--- NOTE | 2019-07-18 22:42 | NUR ---
PT AWAKE AND ROCKING BACK AND FORTH ON RICK MERIDA.
[2019-07-18] MEDS ORDERED: ZIPRASIDONE 20 MG INJ IM ONE ×2 (23:00→23:02)
--- NOTE | 2019-07-18 23:11 | NUR ---
PT BECOMING INCREASINGLY AGGITATED, THRASHING AROUND ON GURNEY WITH 2 POINT RESTRAINTS. RESTRAINTS CHANGED TO OPPOSITE ARM AND LEG, RANGE OF MOTION PREFORMED BY PT. PT MEDICATED FOR AGGITATION AND WILL HAVE RESTRAINTS REMOVED ONCE CALM AND COOPERATIVE.
--- NOTE | 2019-07-19 00:50 | NUR ---
PT SLEEPING ON GURNEY AT THIS TIME. 2 POINT RESTRAINTS REMOVED AND WARM BLANKET PROVIDED.
--- NOTE | 2019-07-19 01:49 | NUR ---
PT SLEEPING ON GURNEY IN SECURED ROOM. RESPIRATIONS EQUAL AND UNLABORED. SITTER AT DOORWAY FOR OBSERVATION.
--- NOTE | 2019-07-19 04:57 | NUR ---
REC BS REPORT PT RESTING NADN ERP TO THE BS PT TO BE A DC
--- NOTE | 2019-07-19 07:19 | NUR ---
I AM ASSUMING CARE OF THIS PT FROM RAYA (PRABHU) AT THIS TIME. SBAR WAS EXCHANGED AT THE BEDSIDE.
--- NOTE | 2019-07-19 08:48 | NUR ---
ELLA DELIVERED AND APPRECIATED. PT STATES THAT SHE WISHE STO CLEAR GEODON PRIOR TO D/C. SHE IS UNSTEADY ON HER FEET UPON ATTEMPTING TO AMBULATE. RECENT TRAUMA HAS CAUSED FEAR FOR D/C. I WILL ENSURE A SAFE D/C PRIOR TO RELEASE.
[2019-07-19 08:59] VITALS: BP 113/74
== END 2019-07-19 10:36 | disposition home or self-care (01) ==
LOC: ED 22:06
DX: G92 Toxic encephalopathy (principal); F15.10 Other stimulant abuse, uncomplicated
CPT/HCPCS: 36415; 80053; 80307; 81001; 84443; 85025; 87086; 96372; 99291; J3486

== ENCOUNTER 2019-08-02 18:09 | Emergency (ER) | payer MEDICAID ==
[~2019-08-02] VITALS: Ht 162.6 cm; Wt 69.5 kg
[~2019-08-02 18:09] MED LIST changes: -TRAZ-137 PO; +TRAZ-175 PO
[2019-08-02 18:13] VITALS: BP 139/97
[2019-08-02] MEDS ORDERED: DIAZEPAM 5 MG TABLET ONE (19:25)
--- NOTE | 2019-08-02 19:27 | NUR ---
PT MEDICATED PER MAR
[2019-08-02] MEDS ORDERED: DIAZEPAM 5 MG TABLET PO ONE (19:30)
--- NOTE | 2019-08-02 19:50 | NUR ---
pt to ct
--- NOTE | 2019-08-02 20:16 | NUR ---
PT AMB WITH STEADY GAIT, PT REQ MORE MEDICATION, STS "I DONT DO PAIN PILLS OR NOTHING BUT IS THERE ANYTHING STRONGER YOU CAN GIVE ME I JUST CAN'T SIT STILL." PA TO BE UPDATED.
== END 2019-08-02 21:01 | disposition home or self-care (01) ==
LOC: ED 20:45
DX: S16.1XXA Strain of muscle, fascia and tendon at neck level, initial encounter (principal); M47.892 Other spondylosis, cervical region; Z72.9 Problem related to lifestyle, unspecified; F15.20 Other stimulant dependence, uncomplicated; I10 Essential (primary) hypertension; F17.200 Nicotine dependence, unspecified, uncomplicated; X58.XXXA Exposure to other specified factors, initial encounter; Y93.89 Activity, other specified; Y92.89 Other specified places as the place of occurrence of the external cause; Y99.8 Other external cause status
CPT/HCPCS: 72125; 99284

== ENCOUNTER 2019-11-12 19:55 | Emergency (ER) | payer MEDICAID ==
[~2019-11-12] VITALS: Ht 162.6 cm; Wt 65.0 kg
[2019-11-12 20:28] LABS: BASOPHILS # (AUTO) 0.04 x10^3/uL (0-0.1); BASOPHILS % (AUTO) 0 % (0-1); EOSINOPHILS # (AUTO) 0.09 x10^3/uL (0-0.4); EOSINOPHILS % (AUTO) 1 % (1-7); LYMPHOCYTES # (AUTO) 2.31 x10^3/uL (1-3.4); LYMPHOCYTES % (AUTO) 27 % (22-44); MD NO; MEAN CORPUSCULAR HEMOGLOBIN 28.7 pg (27.0-34.8); MEAN CORPUSCULAR HGB CONC 33.3 g/dL (32.4-35.8); MEAN CORPUSCULAR VOLUME 86.2 fL (80-100); MEAN PLATELET VOLUME 7.2 fL (7.4-10.4); MONOCYTES # (AUTO) 0.53 x10^3/uL (0.2-0.8); MONOCYTES % (AUTO) 6 % (2-9); NEUTROPHILS # (AUTO) 5.64 x10^3/uL (1.8-6.8); NEUTROPHILS % (AUTO) 66 % (42-75); PLATELET COUNT 463 x10^3/uL (130-400); RED BLOOD COUNT 4.24 x10^6/uL (3.82-5.3); RED CELL DISTRIBUTION WIDTH 14.7 % (9.6-15.2)
[2019-11-12 20:37] LABS: ALANINE AMINOTRANSFERASE 25 U/L (12-78); ALBUMIN 3.4 g/dL (3.4-5.0); ANION GAP 6 mmol/L (5-15); CALCIUM 8.3 mg/dL (8.5-10.1); CHLORIDE 108 mmol/L (98-107)
--- NOTE | 2019-11-12 20:38 | NUR ---
ROOM SECURE FOR SAFETY, SITTER AT DOORWAY FOR SAFETY MONITORING.
[2019-11-12 20:39] LABS: ALKALINE PHOSPHATASE 59 U/L (45-117); BILIRUBIN,TOTAL 0.2 mg/dL (0.2-1.0); CREATININE 0.52 mg/dL (0.55-1.02); TOTAL PROTEIN 7.2 g/dL (6.4-8.2)
[2019-11-12 20:52] LABS: SALICYLATE LEVEL < 1.7 mg/dL (2.8-20.0)
[2019-11-12] MEDS ORDERED: PLEASE ENTER HEIGHT AND WEIGHT MC SCH (21:00)
[2019-11-12] MEDS ORDERED: LORazepam 1MG TABLET PO ONE (21:00)
[2019-11-12 21:02] LABS: AMPHETAMINE SCREEN, URINE Negative (Negative); BARBITURATE SCREEN, URINE Negative (Negative); BENZODIAZEPINE SCREEN, URINE Negative (Negative); CANNABINOID SCREEN, URINE Negative (Negative); COCAINE SCREEN, URINE Negative (Negative); METHADONE SCREEN, URINE Negative (Negative); OPIATE SCREEN, URINE Negative (Negative)
[2019-11-12] MEDS ORDERED: LORazepam 1MG TABLET ONE (21:06)
--- NOTE | 2019-11-12 21:09 | NUR ---
2 BAGS BELONGINGS TO CLOTHING LOCKER.
--- NOTE | 2019-11-12 22:12 | NUR ---
tele psych initiated @ [id number]
--- NOTE | 2019-11-12 23:10 | NUR ---
REPORT GIVEN TO JENIFFER PELLETIER.
--- NOTE | 2019-11-13 01:21 | NUR ---
PT GIVEN MEAL. SITTER OUTSIDE ROOM.
--- NOTE | 2019-11-13 02:00 | NUR ---
called [facility] stephanie stated pt not accepted
--- NOTE | 2019-11-13 02:52 | NUR ---
PT PACKET SENT TO [place] AND [facility].
--- NOTE | 2019-11-13 03:23 | NUR ---
SPOKE TO JAZMINE PELLETIER AT [facility] FOR PT ACCEPTANCE TO [facility].
--- NOTE | 2019-11-13 03:58 | NUR ---
RAYA FROM [facility] CALLED AND ACCEPTED PT. ACCEPTING MD IS DR. ROLON.
--- NOTE | 2019-11-13 04:03 | NUR ---
PT SLEEPING WITH SITTER OUTSIDE ROOM.
--- NOTE | 2019-11-13 05:00 | NUR ---
PT REQUESTING UNDERWEAR AND CRACKERS. PT REPORTS SUICIDAL IDEATIONS AND PLAN. REPORTS SHE WOULD TAKE PILLS. IS CALM AND COOPERATIVE WITH STAFF. SITTER AT BEDSIDE.
[2019-11-13] MEDS ORDERED: LORazepam 1MG TABLET ONE (05:54)
[2019-11-13 06:00] VITALS: BP 136/72
[2019-11-13] MEDS ORDERED: LORazepam 1MG TABLET PO ONE (06:00)
--- NOTE | 2019-11-13 06:07 | NUR ---
PT REQUESTED ATIVAN. SPOKE TO PROVIDER ON AND ORDER PLACED AND ATIVAN GIVEN. PT ASKING FOR BREAKFAST. MEAL TRAY ORDERED. SITTER AT BEDSIDE. PT RESTING.
--- NOTE | 2019-11-13 07:14 | NUR ---
REPORT TO DAVE PELLETIER.
--- NOTE | 2019-11-13 07:25 | NUR ---
REPORT RECEIVED FROM JENIFFER PELLETIER. PT SLEEPING ON [facility]. CHEST RISE AND FALL OBSERVED.
--- NOTE | 2019-11-13 07:36 | NUR ---
[facility] PT AMBULATED OUT W/ A STEADY GAIT. 2 BAGS OF BELONGINGS GIVEN TO EMS.
== END 2019-11-13 07:38 ==
LOC: ED 21:55
DX: R45.851 Suicidal ideations (principal); Z72.9 Problem related to lifestyle, unspecified; F15.10 Other stimulant abuse, uncomplicated; F17.210 Nicotine dependence, cigarettes, uncomplicated; I10 Essential (primary) hypertension; G40.909 Epilepsy, unspecified, not intractable, without status epilepticus; F20.9 Schizophrenia, unspecified; Z90.49 Acquired absence of other specified parts of digestive tract
CPT/HCPCS: 36415; 80053; 80307; 85025; 99285; 99406

== ENCOUNTER 2020-06-06 11:48 | Emergency (ER) | payer MEDICAID ==
[~2020-06-06] VITALS: Ht 162.6 cm; Wt 84.0 kg
[2020-06-06] MEDS ORDERED: LORazepam 2 MG/ML, 1ML ONE (12:54)
--- NOTE | 2020-06-06 13:04 | NUR ---
Late entry due to pt care. Pt was brought into ER 33 on gurney, thrashing in bed, not responding to staff questions. Pt's mother reports pt "smoked something" this morning and called her asking for help to detox. Pt placed in gown, PIV inserted and Dr. Ferreira in to evaluate pt. Pt medicated with 2mg Ativan IVP per Dr. Ferreira order. Pt stopped thrashing shortly after medicating her, able to answer orientation questions x4. Pt c/o "muscle spasms and pseudo seizures". Pt reports she has been smoking meth daily since 06/03 when she was released from detention. Pt reports last use this morning just prior to arrival to ER. Seizure precautions in place, continuous heart, oxygen and BP monitors applied, all safety measures observed.
[2020-06-06] MEDS ORDERED: LORazepam 2 MG/ML, 1ML IVPush ONE ×2 (13:30→14:30)
[2020-06-06] MEDS ORDERED: ZIPRASIDONE 20 MG INJ IM PRN (13:30)
[2020-06-06 13:31] LABS: BASOPHILS % (AUTO) 0 % (0-1); EOSINOPHILS % (AUTO) 1 % (1-7); LYMPHOCYTES % (AUTO) 25 % (22-44); MEAN CORPUSCULAR HEMOGLOBIN 29.2 pg (27.0-34.8); MEAN CORPUSCULAR HGB CONC 33.5 g/dL (32.4-35.8); MEAN PLATELET VOLUME 6.4 fL (7.4-10.4); MONOCYTES % (AUTO) 7 % (2-9); NEUTROPHILS % (AUTO) 66 % (42-75); PLATELET COUNT 577 x10^3/uL (130-400); RED BLOOD COUNT 4.28 x10^6/uL (3.82-5.3); RED CELL DISTRIBUTION WIDTH 13.8 % (9.6-15.2)
[2020-06-06 13:37] LABS: MD NO
[2020-06-06 13:41] LABS: ANION GAP 13 mmol/L (5-15); CALCIUM 8.6 mg/dL (8.5-10.1); CHLORIDE 110 mmol/L (98-107)
[2020-06-06 13:45] LABS: ALANINE AMINOTRANSFERASE 33 U/L (12-78); ALKALINE PHOSPHATASE 60 U/L (45-117); BILIRUBIN,TOTAL 0.3 mg/dL (0.2-1.0); CREATININE 0.96 mg/dL (0.55-1.02); SALICYLATE LEVEL 2.5 mg/dL (2.8-20.0); TOTAL PROTEIN 8.3 g/dL (6.4-8.2)
[2020-06-06] MEDS ORDERED: ZIPRASIDONE 20 MG INJ IM ONE (14:19)
--- NOTE | 2020-06-06 14:24 | NUR ---
PT IS STILL RESTLESS, CONTINUING TO ROLL AROUND ON [facility]. PRN GEODON 10MG IM GIVEN.
--- NOTE | 2020-06-06 14:59 | NUR ---
PT SLEEPING ON GURNEY. RESP EVEN AND UNLABORED.
--- NOTE | 2020-06-06 17:27 | NUR ---
PT SLEEPING ON GURNEY. RESP EVEN AND UNLABORED. BROOK.
--- NOTE | 2020-06-06 18:36 | NUR ---
PT AWAKE, ALERT, CALM, AND READY TO LEAVE. THIS RN CALLED PT MOM. PT MOM STATES PT IS APPROVED TO GO TO [facility]. THIS RN CALLED [facility] TO CONFIRM. [facility] IS SENDING SALVAGE ENGINEERING TECHNICIAN TO PICK PT UP. PT GIVEN SNACKS.
[2020-06-06 18:38] VITALS: BP 135/89
--- NOTE | 2020-06-06 18:48 | NUR ---
PT AMBULATED TO RESTROOM WITH STEADY GAIT.
--- NOTE | 2020-06-06 19:03 | NUR ---
PT AMBULATED TO [place] WITH EMPLOYEE FROM [facility].
== END 2020-06-06 19:06 | disposition home or self-care (01) ==
LOC: ED 12:01
DX: F15.122 Other stimulant abuse with intoxication with perceptual disturbance (principal); I10 Essential (primary) hypertension; F17.210 Nicotine dependence, cigarettes, uncomplicated; Z90.49 Acquired absence of other specified parts of digestive tract
CPT/HCPCS: 36415; 80053; 80299; 80320; 80329; 85025; 96372; 96374; 99285; 99406; J2060; J3486; G0480

== ENCOUNTER 2020-07-03 00:37 | Inpatient (IN) | payer MEDICAID ==
[~2020-07-03] VITALS: Ht 162.6 cm; Wt 83.6 kg
[2020-07-03 03:00] VITALS: BP 127/82
[2020-07-03] MEDS ORDERED: BISACODYL 10 MG SUPP PR PRN (03:00)
[2020-07-03] MEDS ORDERED: DOCUSATE 100 MG CAPSULE PO PRN (03:00)
[2020-07-03] MEDS ORDERED: ONDANSETRON ODT 4 MG PO PRN (03:00)
[2020-07-03] MEDS ORDERED: POLYETHYLENE GLYCOL 17 GM PACKET PO PRN (03:00)
[2020-07-03 03:39] VITALS: BP 127/82
[2020-07-03 07:36] VITALS: BP 111/68
[2020-07-03] MEDS ORDERED: FLU VACC QS2020-21(6MOS UP)/PF 60MCG/0.5 ML SYR IM ONE (09:00)
[2020-07-03 14:57] LABS: BASOPHILS % (AUTO) 1 % (0-1); EOSINOPHILS % (AUTO) 1 % (1-7); LYMPHOCYTES % (AUTO) 22 % (22-44); MEAN CORPUSCULAR HEMOGLOBIN 29.1 pg (27.0-34.8); MEAN CORPUSCULAR HGB CONC 33.9 g/dL (32.4-35.8); MEAN PLATELET VOLUME 6.8 fL (7.4-10.4); MONOCYTES % (AUTO) 6 % (2-9); NEUTROPHILS % (AUTO) 71 % (42-75); PLATELET COUNT 420 x10^3/uL (130-400); RED BLOOD COUNT 3.77 x10^6/uL (3.82-5.3); RED CELL DISTRIBUTION WIDTH 14.9 % (9.6-15.2)
[2020-07-03 14:59] LABS: MD NO
[2020-07-03] MEDS: PALIPERIDONE 3 MG TAB.ER.24 PO SCH (15:02)
[2020-07-03 15:09] LABS: ALBUMIN 3.2 g/dL (3.4-5.0); ANION GAP 2 mmol/L (5-15); CALCIUM 8.5 mg/dL (8.5-10.1); CHLORIDE 107 mmol/L (98-107); CHOLESTEROL, TOTAL 157 mg/dL (140-239); CREATININE 0.52 mg/dL (0.55-1.02); TRIGLYCERIDES 156 mg/dL (50-200); VLDL CHOLESTEROL 31 mg/dL (0-25)
[2020-07-03 15:36] LABS: FREE T4 (FREE THYROXINE) 1.35 ng/dL (0.76-1.46); HDL CHOL % 25 % (28-40); HDL CHOLESTEROL (DIRECT) 39 mg/dL (40-60); LDL CHOLESTEROL,CALCULATED 87 mg/dL (54-169); LDL/HDL RATIO 2.2 (0.5-3.0)
[2020-07-03] MEDS: ACETAMINOPHEN 325 MG TABLET PO PRN ×2 (16:30→22:33)
[2020-07-03 16:54] LABS: MICROSCOPIC INDICATED
[2020-07-03] MEDS ORDERED: NALTREXONE HCL 50 MG TABLET ONE (22:58)
[2020-07-03 23:01] VITALS: BP 151/99
[2020-07-03] MEDS ORDERED: TRAZODONE 50MG TABLET ONE (23:05)
[2020-07-03] MEDS: TRAZODONE 50MG TABLET PO SCH (23:06)
[2020-07-04] MEDS: ACETAMINOPHEN 325 MG TABLET PO PRN ×3 (03:47→20:42)
[2020-07-04 07:10] VITALS: BP 117/74
[2020-07-04] MEDS: PALIPERIDONE 3 MG TAB.ER.24 PO SCH (08:43)
[2020-07-04] MEDS: CHOLECALCIFEROL 5,000u TAB PO SCH (08:44)
[2020-07-04 08:56] LABS: CHOL/HDL RATIO 3.8; LDL/HDL RATIO 2.1 (0.5-3.0)
[2020-07-04] MEDS ORDERED: IBUPROFEN 200 MG TABLET ONE (09:08)
[2020-07-04] MEDS: IBUPROFEN 800 MG TABLET PO SCH ×2 (09:09→10:00)
[2020-07-04] MEDS ORDERED: LORazepam 1MG TABLET ONE (11:18)
[2020-07-04] MEDS ORDERED: LORazepam 1MG TABLET PO ONE (11:30)
[2020-07-04 19:30] VITALS: BP 136/89
[2020-07-04] MEDS: HYDROXYZINE PAMOATE 50MG CAP PO PRN (20:42)
[2020-07-04] MEDS: TRAZODONE 50MG TABLET PO SCH (20:42)
[2020-07-05 07:13] VITALS: BP 110/70
[2020-07-05] MEDS: CHOLECALCIFEROL 5,000u TAB PO SCH (08:55)
[2020-07-05] MEDS: ACETAMINOPHEN 325 MG TABLET PO PRN (08:55)
[2020-07-05] MEDS: PALIPERIDONE 3 MG TAB.ER.24 PO SCH (08:55)
[2020-07-05] MEDS: HYDROXYZINE PAMOATE 50MG CAP PO PRN ×2 (08:55→13:56)
[2020-07-05] MEDS: DULOXETINE 30 MG CAPSULE.DR PO SCH ×2 (12:36→20:19)
[2020-07-05 20:00] VITALS: BP 136/85
[2020-07-05] MEDS: TRAZODONE 50MG TABLET PO SCH (20:22)
[2020-07-06 07:53] VITALS: BP 112/72
[2020-07-06] MEDS: PALIPERIDONE 3 MG TAB.ER.24 PO SCH (09:34)
[2020-07-06] MEDS: CHOLECALCIFEROL 5,000u TAB PO SCH (09:34)
[2020-07-06] MEDS: DULOXETINE 30 MG CAPSULE.DR PO SCH (09:34)
[2020-07-06] MEDS: ACETAMINOPHEN 325 MG TABLET PO PRN ×2 (15:44→20:10)
[2020-07-06 19:40] VITALS: BP 120/81
[2020-07-06] MEDS: HYDROXYZINE PAMOATE 50MG CAP PO PRN (20:10)
[2020-07-06] MEDS: TRAZODONE 50MG TABLET PO SCH (20:10)
[2020-07-07 07:38] VITALS: BP 137/92
[2020-07-07] MEDS: PALIPERIDONE 3 MG TAB.ER.24 PO SCH (08:38)
[2020-07-07] MEDS: CHOLECALCIFEROL 5,000u TAB PO SCH (08:38)
[2020-07-07] MEDS: DULOXETINE 30 MG CAPSULE.DR PO SCH ×2 (08:39→08:41)
[2020-07-07] MEDS: HYDROXYZINE PAMOATE 50MG CAP PO PRN (18:57)
[2020-07-07 19:44] VITALS: BP 125/81
[2020-07-07] MEDS: ORAJEL 7GM TUBE MM PRN (20:16)
[2020-07-07] MEDS: TRAZODONE 50MG TABLET PO SCH (20:16)
[2020-07-07] MEDS: ACETAMINOPHEN 325 MG TABLET PO PRN (20:16)
[2020-07-08 07:23] VITALS: BP 120/88
[2020-07-08] MEDS: CHOLECALCIFEROL 5,000u TAB PO SCH (08:31)
[2020-07-08] MEDS: PALIPERIDONE 3 MG TAB.ER.24 PO SCH (08:31)
[2020-07-08] MEDS: DULOXETINE 30 MG CAPSULE.DR PO SCH (08:32)
[2020-07-08] MEDS: HYDROXYZINE PAMOATE 50MG CAP PO PRN ×2 (09:00→16:53)
[2020-07-08] MEDS: ACETAMINOPHEN 325 MG TABLET PO PRN (16:53)
[2020-07-08] MEDS: TRAZODONE 50MG TABLET PO SCH (20:14)
[2020-07-08] MEDS: ORAJEL 7GM TUBE MM PRN (20:14)
[2020-07-08 20:18] VITALS: BP 135/93
[2020-07-09 07:14] VITALS: BP 120/81
[2020-07-09] MEDS: DULOXETINE 30 MG CAPSULE.DR PO SCH (08:29)
[2020-07-09] MEDS: CHOLECALCIFEROL 5,000u TAB PO SCH (08:29)
[2020-07-09] MEDS: PALIPERIDONE 3 MG TAB.ER.24 PO SCH (08:29)
[2020-07-09] MEDS: ORAJEL 7GM TUBE MM PRN (15:20)
[2020-07-09] MEDS: HYDROXYZINE PAMOATE 50MG CAP PO PRN (17:22)
[2020-07-09] MEDS: ACETAMINOPHEN 325 MG TABLET PO PRN (17:22)
[2020-07-09 18:39] LABS: HCG UR SG 1.024 (1.003-1.030)
[2020-07-09 19:43] VITALS: BP 134/91
[2020-07-09] MEDS: TRAZODONE 50MG TABLET PO SCH (20:25)
[2020-07-10 07:39] VITALS: BP 125/79
[2020-07-10] MEDS: DULOXETINE 30 MG CAPSULE.DR PO SCH (08:34)
[2020-07-10] MEDS: PALIPERIDONE 3 MG TAB.ER.24 PO SCH (08:34)
[2020-07-10] MEDS: CHOLECALCIFEROL 5,000u TAB PO SCH (08:34)
[2020-07-10] MEDS: ORAJEL 7GM TUBE MM PRN (08:38)
[2020-07-10] MEDS ORDERED: CELE100C PO (13:22)
[2020-07-10] MEDS ORDERED: TRAZ50TA66 PO (13:22)
[2020-07-10] MEDS ORDERED: HYDR50CA2 PO (13:22)
[2020-07-10] MEDS ORDERED: DULO30CA2 PO (13:22)
[2020-07-10] MEDS ORDERED: PALI3TAB11 PO (13:22)
== END 2020-07-10 14:38 | disposition home or self-care (01) | DRG 885 ==
LOC: 3E 03:08
PROVIDERS: ADMIT Psychiatry & Neurology Psychosomatic Medicine; ATTEND Psychiatry & Neurology Psychosomatic Medicine
DX: F25.0 Schizoaffective disorder, bipolar type (principal); R45.851 Suicidal ideations; F15.20 Other stimulant dependence, uncomplicated; Z59.0 Homelessness; Z79.899 Other long term (current) drug therapy; E55.9 Vitamin D deficiency, unspecified; F43.10 Post-traumatic stress disorder, unspecified; G35 Multiple sclerosis; G47.00 Insomnia, unspecified; G89.29 Other chronic pain; I10 Essential (primary) hypertension; M06.9 Rheumatoid arthritis, unspecified; M19.90 Unspecified osteoarthritis, unspecified site; Z91.19 Patient's noncompliance with other medical treatment and regimen; Z88.6 Allergy status to analgesic agent; Z88.0 Allergy status to penicillin; Z88.8 Allergy status to other drugs, medicaments and biological substances
CPT/HCPCS: 36415; 71045; 80061; 80069; 81001; 81025; 82306; 82607; 83735; 84439; 84443; 85025; 87491; 87591; 90686; 93005

== ENCOUNTER 2020-08-25 21:32 | Inpatient (IN) | payer MEDICAID ==
[~2020-08-25] VITALS: Ht 162.6 cm; Wt 81.9 kg
[~2020-08-25 21:32] MED LIST changes: +CELE100C PO; -CYCL-259 PO; +CYCL10TA2 PO; +DULO30CA2 PO; +HYDR50CA2 PO; +NAPR-872 PO; -NAPR250T6 PO; -OXYC-302 PO; +OXYC1TAB14 PO; +PALI3TAB11 PO; +TRAZ50TA66 PO
[2020-08-25] MEDS ORDERED: ONDANSETRON ODT 4 MG PO PRN (23:00)
[2020-08-25] MEDS ORDERED: POLYETHYLENE GLYCOL 17 GM PACKET PO PRN (23:00)
[2020-08-25] MEDS ORDERED: BISACODYL 10 MG SUPP PR PRN (23:00)
[2020-08-25] MEDS ORDERED: DOCUSATE 100 MG CAPSULE PO PRN (23:00)
[2020-08-26] MEDS ORDERED: LORazepam 2 MG/ML, 1ML IV PRN (03:30)
[2020-08-26 04:31] VITALS: BP 121/88
[2020-08-26 04:37] VITALS: BP 121/88
[2020-08-26 07:24] VITALS: BP 115/76
[2020-08-26] MEDS ORDERED: LORazepam 1MG TABLET ONE (08:28)
[2020-08-26] MEDS: LORazepam 1MG TABLET PO PRN ×2 (08:32→17:51)
[2020-08-26] MEDS ORDERED: LEVETIRACETAM 500 MG TABLET PO SCH (09:00)
[2020-08-26] MEDS ORDERED: ESCI10TA97 PO (12:34)
[2020-08-26] MEDS ORDERED: GABA600T7 PO (12:35)
[2020-08-26] MEDS: PALIPERIDONE 6 MG TAB.ER.24 PO SCH (16:00)
[2020-08-26] MEDS: CARBAMAZEPINE XR 200 MG TABLET PO SCH ×2 (16:30→20:21)
[2020-08-26 18:38] LABS: AMPHETAMINE SCREEN, URINE Positive (Negative); BARBITURATE SCREEN, URINE Negative (Negative); BENZODIAZEPINE SCREEN, URINE Positive (Negative); CANNABINOID SCREEN, URINE Negative (Negative); COCAINE SCREEN, URINE Negative (Negative); METHADONE SCREEN, URINE Negative (Negative); OPIATE SCREEN, URINE Negative (Negative)
[2020-08-26 19:26] VITALS: BP 118/81
[2020-08-26] MEDS: TRAZODONE 50MG TABLET PO SCH (20:21)
[2020-08-27] MEDS: ACETAMINOPHEN 325 MG TABLET PO PRN ×2 (02:17→08:20)
[2020-08-27] MEDS: LORazepam 1MG TABLET PO PRN ×3 (02:30→19:27)
[2020-08-27 07:30] VITALS: BP 101/64
[2020-08-27] MEDS: PALIPERIDONE 6 MG TAB.ER.24 PO SCH (08:20)
[2020-08-27] MEDS: CARBAMAZEPINE XR 200 MG TABLET PO SCH ×2 (08:20→20:26)
[2020-08-27 19:09] VITALS: BP 140/97
[2020-08-27] MEDS: TRAZODONE 50MG TABLET PO SCH (20:26)
[2020-08-28] MEDS: LORazepam 1MG TABLET PO PRN ×4 (06:20→22:07)
[2020-08-28 07:45] VITALS: BP 142/90
[2020-08-28] MEDS: PALIPERIDONE 6 MG TAB.ER.24 PO SCH (09:19)
[2020-08-28] MEDS: CARBAMAZEPINE XR 200 MG TABLET PO SCH ×2 (09:19→20:24)
[2020-08-28] MEDS: ACETAMINOPHEN 325 MG TABLET PO PRN ×2 (10:18→18:23)
[2020-08-28 19:11] VITALS: BP 136/93
[2020-08-28] MEDS: TRAZODONE 50MG TABLET PO SCH (20:24)
[2020-08-28] MEDS: HYDROXYZINE PAMOATE 50MG CAP PO PRN (20:38)
[2020-08-29 07:55] VITALS: BP 133/92
[2020-08-29] MEDS: PALIPERIDONE 6 MG TAB.ER.24 PO SCH (10:32)
[2020-08-29] MEDS: CARBAMAZEPINE XR 200 MG TABLET PO SCH ×2 (10:33→20:07)
[2020-08-29] MEDS: LORazepam 1MG TABLET PO PRN ×2 (10:39→21:11)
[2020-08-29] MEDS: HYDROXYZINE PAMOATE 50MG CAP PO PRN (17:34)
[2020-08-29 19:45] VITALS: BP 136/84
[2020-08-29] MEDS: TRAZODONE 50MG TABLET PO SCH (20:07)
[2020-08-30 07:36] VITALS: BP 127/85
[2020-08-30] MEDS: CARBAMAZEPINE XR 200 MG TABLET PO SCH ×2 (08:23→20:06)
[2020-08-30] MEDS: HYDROXYZINE PAMOATE 50MG CAP PO PRN ×2 (08:23→23:42)
[2020-08-30] MEDS: PALIPERIDONE 3 MG TAB.ER.24 PO SCH (08:23)
[2020-08-30 10:58] LABS: MICROSCOPIC AUTO
[2020-08-30 19:42] VITALS: BP 137/80
[2020-08-30] MEDS: ACETAMINOPHEN 325 MG TABLET PO PRN (20:06)
[2020-08-30] MEDS: LORazepam 1MG TABLET PO PRN (20:06)
[2020-08-30] MEDS: TRAZODONE 50MG TABLET PO SCH (20:06)
[2020-08-31 07:33] VITALS: BP 82/94
[2020-08-31] MEDS: PALIPERIDONE 3 MG TAB.ER.24 PO SCH (08:16)
[2020-08-31] MEDS: CARBAMAZEPINE XR 200 MG TABLET PO SCH ×2 (08:16→19:58)
[2020-08-31] MEDS: LORazepam 1MG TABLET PO PRN ×2 (11:25→19:58)
[2020-08-31 19:30] VITALS: BP 121/84
[2020-08-31] MEDS: HYDROXYZINE PAMOATE 50MG CAP PO PRN (20:59)
[2020-08-31] MEDS ORDERED: TRAZODONE 50MG TABLET PO SCH (21:00)
[2020-09-01] MEDS: LORazepam 1MG TABLET PO PRN ×4 (00:54→20:14)
[2020-09-01 07:25] VITALS: BP 122/80
[2020-09-01] MEDS: CARBAMAZEPINE XR 200 MG TABLET PO SCH ×2 (08:46→20:14)
[2020-09-01] MEDS: PALIPERIDONE 3 MG TAB.ER.24 PO SCH (09:04)
[2020-09-01] MEDS ORDERED: TRAZ150T62 PO (13:30)
[2020-09-01] MEDS ORDERED: HYDR50CA2 PO (13:30)
[2020-09-01] MEDS ORDERED: PALI3TAB11 PO (13:30)
[2020-09-01] MEDS ORDERED: CARB200T2 PO (13:30)
[2020-09-01 19:30] VITALS: BP 140/90
[2020-09-01 19:45] VITALS: BP 105/70
[2020-09-01] MEDS: ACETAMINOPHEN 325 MG TABLET PO PRN (20:15)
[2020-09-01] MEDS ORDERED: TRAZODONE 150MG TABLET PO SCH (21:00)
[2020-09-02 07:43] VITALS: BP 124/86
[2020-09-02] MEDS: PALIPERIDONE 3 MG TAB.ER.24 PO SCH (08:10)
[2020-09-02] MEDS: CARBAMAZEPINE XR 200 MG TABLET PO SCH (08:10)
[2020-09-02] MEDS: LORazepam 1MG TABLET PO PRN (08:16)
== END 2020-09-02 14:00 | disposition home or self-care (01) | DRG 885 ==
LOC: 3E 08-26 01:01
PROVIDERS: ADMIT Psychiatry & Neurology Psychosomatic Medicine; ATTEND Psychiatry & Neurology Psychosomatic Medicine
DX: F25.0 Schizoaffective disorder, bipolar type (principal); E87.2 Acidosis; F15.20 Other stimulant dependence, uncomplicated; E66.9 Obesity, unspecified; E86.0 Dehydration; G40.909 Epilepsy, unspecified, not intractable, without status epilepticus; F41.9 Anxiety disorder, unspecified; G47.00 Insomnia, unspecified; Z91.14 Patient's other noncompliance with medication regimen; Z91.19 Patient's noncompliance with other medical treatment and regimen; Z87.891 Personal history of nicotine dependence; Z68.35 Body mass index [BMI] 35.0-35.9, adult
CPT/HCPCS: 36415; 80307; 81001; 84443; 84481; 93005

== ENCOUNTER 2020-10-30 22:59 | Emergency (ER) | payer MEDICAID ==
[~2020-10-30] VITALS: Ht 162.6 cm; Wt 80.0 kg
[~2020-10-30 22:59] MED LIST changes: +CARB200T2 PO; +ESCI10TA97 PO; +GABA600T7 PO; +TRAZ150T62 PO
--- NOTE | 2020-10-30 23:06 | NUR ---
PT C/O LOW BACK PAIN AND NECK PAIN SECONDARY TO MS. PT WAS SEEN THIS AM AT [facility] FOR SAME COMPLAINT. EMS REPORTS EARLIER TODAY, BEFORE GOING TO [facility] PT USED METH TO TRY AND TREAT THE PAIN. PLACED ON SPO2/BP MONITORING. PT DENIES TRAUMA TO THE AREA. STATES "I NEED IT TO BE CRACKED, CAN YOU ALIGN MY BACK?" RN EXPLAINED THAT A CHIROPRACTOR WOULD HAVE TO BE THE ONE TO ALIGN HER BACK BUT AN ERP WILL COME TAKE A LOOK. BED IN LOWEST, RAILS ENGAGED, CALL LIGHT ON LAP, WCTM. PT GIVEN 1000MG TYLENOL, 600MG IBUBPROFEN AND 100MCG INTRANASAL FENTANYL IT ASSOCIATE BY EMS
[2020-10-31] MEDS ORDERED: KETOROLAC 30 MG/1 ML IM ONE
[2020-10-31] MEDS ORDERED: METHOCARBAMOL 750 MG TABLET PO ONE
[2020-10-31] MEDS ORDERED: KETOROLAC 60 MG/2 ML ONE (00:01)
[2020-10-31] MEDS ORDERED: METHOCARBAMOL 750 MG TABLET ONE (00:01)
--- NOTE | 2020-10-31 00:11 | NUR ---
PT MEDICATED PER MAR FOR PAIN. NAD, RESTING ON GURNEY, VSS, APPEARS COMFORTABLE, WCTM.
[2020-10-31 01:14] VITALS: BP 125/74
--- NOTE | 2020-10-31 01:39 | NUR ---
PT RESTING ON GURNEY, NAD, EYES CLOSED, APPEARS COMFORTABLE, VSS. WCTM. TO BE DC'D
--- NOTE | 2020-10-31 02:19 | NUR ---
PT UNHAPPY WITH DC D/T RN BEING UNABLE TO PROVIDE PT WITH SCRIPT FOR MEDICATION FOR BACK PAIN. ERP PROVIDER LEFT FOR THE EVENING PRIOR TO SIGNING THE SCRIPT FOR THE PT. NO OTHER ERP WILLING TO WRITE SCRIPT FOR PATIENT. RN INFORMED THAT I DO NOT HAVE A PROVIDER WHO CAN SIGN THE PRESCRIPTION SO RN INFORMED PT SHE CAN CHECK BACK IN AND SEE ANOTHER PROVIDER BUT WE CANNOT PROMISE SHE WILL GET A SCRIPT WRITTEN IT IS UP TO PROVIDER. RN VERIFIED PLAN WITH [facility]ALTHCARE TRANSLATOR PRESENT D/T BEING UNABLE TO REACH ORIGINAL PROVIDER. NO PERSONAL BELONGINGS LEFT IN ROOM AFTER DC.
== END 2020-10-31 02:32 | disposition home or self-care (01) ==
LOC: ED 23:29
DX: S29.012A Strain of muscle and tendon of back wall of thorax, initial encounter (principal); M54.2 Cervicalgia; X58.XXXA Exposure to other specified factors, initial encounter; Y93.89 Activity, other specified; Y92.89 Other specified places as the place of occurrence of the external cause; Y99.8 Other external cause status
CPT/HCPCS: 96372; 99283; J1885

== ENCOUNTER 2020-10-31 02:33 | Emergency (ER) | payer MEDICAID ==
[2020-10-31] MEDS ORDERED: IBUPROFEN 600 MG TABLET ONE (02:53)
[2020-10-31] MEDS ORDERED: LORazepam 1MG TABLET ONE (02:53)
[2020-10-31] MEDS ORDERED: LORazepam 1MG TABLET PO ONE (03:00)
[2020-10-31] MEDS ORDERED: IBUPROFEN 200 MG TABLET PO ONE (03:00)
--- NOTE | 2020-10-31 03:12 | NUR ---
Pt medicated per order, pt states she can't provide urine. Encouraged po water. Pt says that she does want to kill herself because of pain but refuses to specify on any plan or answer further questions.
--- NOTE | 2020-10-31 03:19 | NUR ---
All assessments done by Yuliana Maharaj RN. Not PRABHU degroot. This bond writer inadvertantly charted under wrong nurse.
--- NOTE | 2020-10-31 03:41 | NUR ---
Sleeping, RR equal and unlabored. Refuses to try to provide urine.
[2020-10-31 03:43] LABS: BASOPHILS % (AUTO) 0 % (0-1); EOSINOPHILS % (AUTO) 3 % (1-7); LYMPHOCYTES % (AUTO) 36 % (22-44); MEAN CORPUSCULAR HGB CONC 32.8 g/dL (32.4-35.8); MEAN PLATELET VOLUME 6.8 fL (7.4-10.4); MONOCYTES % (AUTO) 7 % (2-9); NEUTROPHILS % (AUTO) 53 % (42-75); PLATELET COUNT 417 x10^3/uL (130-400); RED CELL DISTRIBUTION WIDTH 16.6 % (9.6-15.2)
[2020-10-31 03:46] LABS: MD NO
--- NOTE | 2020-10-31 03:52 | NUR ---
Pt sleeping, snoring. Wakes up with verbal and starts to moan, still refusing to try and give urine.
[2020-10-31 04:03] LABS: ALANINE AMINOTRANSFERASE 37 U/L (12-78); ALBUMIN 3.5 g/dL (3.4-5.0); ANION GAP 7 mmol/L (5-15); CALCIUM 8.3 mg/dL (8.5-10.1); CHLORIDE 107 mmol/L (98-107); CREATININE 0.42 mg/dL (0.55-1.02)
[2020-10-31 04:06] LABS: SALICYLATE LEVEL < 1.7 mg/dL (2.8-20.0)
[2020-10-31 04:07] LABS: ALKALINE PHOSPHATASE 63 U/L (45-117); BILIRUBIN,TOTAL 0.5 mg/dL (0.2-1.0); TOTAL PROTEIN 7.2 g/dL (6.4-8.2)
--- NOTE | 2020-10-31 04:18 | NUR ---
Pt to have telepsych.
--- NOTE | 2020-10-31 04:38 | NUR ---
Sleeping, RR equal and unlabored. Wakes up with verbal, still refusing to try and provide urine. Pt to have telepsych.
--- NOTE | 2020-10-31 04:51 | NUR ---
Pt informed to have telepsych eval, pt still refuses urine.
--- NOTE | 2020-10-31 06:24 | NUR ---
Late Entry: Belongings removed labeled and placed in storage locker. x1 hospital bag and x1 black purse; not searched.
--- NOTE | 2020-10-31 06:45 | NUR ---
Report PRABHU Díaz
--- NOTE | 2020-10-31 07:14 | NUR ---
sitter in place, placing sleeping, safety maintained. as
--- NOTE | 2020-10-31 07:52 | NUR ---
pt not complyig w suicide reassessment, when asked how she feels she says "" and asks for more blankets. vss. breakfast tray ordered. sitter in place. as
--- NOTE | 2020-10-31 09:00 | NUR ---
report to janelle frank. as
--- NOTE | 2020-10-31 09:03 | NUR ---
RECEIVED REPORT FROM PRABHU BATEMAN. PT RESTING ON [place]NOLIA. BROOK. SITTER REMAINS AT BEDSIDE. ROOM REMAINS SECURE. PT PROVIDED W/ SI BREAKFAST TRAY.
--- NOTE | 2020-10-31 10:02 | NUR ---
PT SLEEPING ON GURNEY. NADN. SITTER REMAINS AT BEDSIDE. ROOM REMAINS SECURE. SITTER AWARE OF NEED FOR UDS/UA SAMPLE ONCE PT GETS UP TO USE RESTROOM. UA CUP LEFT W/ SITTER.
--- NOTE | 2020-10-31 11:10 | NUR ---
PT UP TO RESTROOM AND BACK TO ROOM W/ SITTER MONITORING PT. PT RESTING ON GURNEY. NADN. SITTER REMAINS AT BEDSIDE. ROOM REMAINS SECURE.
[2020-10-31 11:32] LABS: MICROSCOPIC INDICATED
[2020-10-31 11:37] LABS: AMPHETAMINE SCREEN, URINE Positive (Negative); BARBITURATE SCREEN, URINE Negative (Negative); BENZODIAZEPINE SCREEN, URINE Positive (Negative); CANNABINOID SCREEN, URINE Negative (Negative); COCAINE SCREEN, URINE Negative (Negative); METHADONE SCREEN, URINE Negative (Negative); OPIATE SCREEN, URINE Negative (Negative)
--- NOTE | 2020-10-31 12:30 | NUR ---
PT SLEEPING ON GURNEY. BROOK. SITTER REMAINS AT BEDSIDE. ROOM REMAINS SECURE. SI LUNCH TRAY PROVIDED TO PT.
--- NOTE | 2020-10-31 13:22 | NUR ---
PT SLEEPING ON GURTRACY. BROOK. SITTER REMAINS AT BEDSIDE. ROOM REMAINS SECURE.
--- NOTE | 2020-10-31 15:07 | NUR ---
HOSPITAL BED ORDERED FOR PT.
--- NOTE | 2020-10-31 15:28 | NUR ---
PT MOVED FROM [facility] [place] H[facility]PITAL BED. PT RESTING ON BED. NADN. SITTER REMAINS AT BEDSIDE. ROOM REMAINS SECURE.
--- NOTE | 2020-10-31 16:08 | NUR ---
PT PROVIDED W/ SI DINNER TRAY. PT RESTING IN BED. NADN. SITTER REMAINS AT BEDSIDE. ROOM REMAINS SECURE.
--- NOTE | 2020-10-31 17:16 | NUR ---
PT RESTING ON BED. NADN. SITTER REMAINS AT BEDSIDE. ROOM REMAINS SECURE.
--- NOTE | 2020-10-31 18:23 | NUR ---
DECLINED BY [facility]. PACKET FAXED TO [facility], [facility]
[2020-10-31] MEDS ORDERED: ACETAMINOPHEN 325 MG TABLET ONE (19:57)
[2020-10-31] MEDS ORDERED: ACETAMINOPHEN 325 MG TABLET PO ONE (20:00)
--- NOTE | 2020-10-31 20:05 | NUR ---
PT RESTING IN BED. NADN. SITTER REMAINS AT BEDSIDE. ROOM REMAINS SECURE.
--- NOTE | 2020-10-31 21:05 | NUR ---
REPORT GIVEN TO RIVERA GALLEGOS RN.
--- NOTE | 2020-10-31 23:52 | NUR ---
PT SLEEPING ON HER SIDE ON HOSPITAL BED WITH TV ON. NO ACUTE DISTRESS NOTED, SITTER OUTSIDE DOORWAY, WILL CONT TO MONITOR.
--- NOTE | 2020-11-01 01:30 | NUR ---
PT SLEEPING ON HOSPITAL BED, TV STILL ON. SITTER OUTSIDE DOORWAY, WILL CONT TO MONITOR.
--- NOTE | 2020-11-01 02:21 | NUR ---
PER BAKARI AT [place], THEY DONT HAVE ANY BEDS AVAIL BUT WILL KEEP REF OPEN.
--- NOTE | 2020-11-01 03:15 | NUR ---
PT AWAKE AND C/O BACK PAIN. PT INFORMED RN WILL NOTIFY MD.
[2020-11-01] MEDS ORDERED: ACETAMINOPHEN 325 MG TABLET ONE ×2 (03:36→16:20)
--- NOTE | 2020-11-01 03:44 | NUR ---
PT AMBULATED TO RESTROOM WITH STEADY GAIT. PT MEDICATED FOR PAIN PER EMAR AND ORANGE JUICE PROVIDED REQUESTED. VSS AND WILL CONT TO MONITOR. SITTER AT DOORWAY.
[2020-11-01] MEDS ORDERED: ACETAMINOPHEN 325 MG TABLET PO ONE ×2 (04:00→16:30)
--- NOTE | 2020-11-01 04:30 | NUR ---
REPORT FROM PRABHU GALLEGOS
--- NOTE | 2020-11-01 05:00 | NUR ---
PT RESTING ON HOSPITAL BED. RESPIRATIONS EVEN AND UNLABORED. SITTER AT DOORWAY FOR FREQUENT CHECKS.
--- NOTE | 2020-11-01 06:48 | NUR ---
REPORT TO PRABHU DOWELL
--- NOTE | 2020-11-01 06:53 | NUR ---
ASSUMED CARE OF PT FROM PRABHU BARTLETT. PT RESTING IN [facility], MONITORING IN PLACE, NADN AT THIS TIME, PER PT NO NEEDS, WCTM.
--- NOTE | 2020-11-01 08:14 | NUR ---
SITTER WITHIN DIRECT LINE OF SIGHT FOR SAFETY. PT RESTING, NADN AT THIS TIME, WCTM.
--- NOTE | 2020-11-01 08:34 | NUR ---
REPORT GIVEN TO PRABHU WILKERSON.
--- NOTE | 2020-11-01 08:43 | NUR ---
pt moved to room 3, report received from PRABHU Chaudhry. this RN assuming care. pt sleeping, resps even and unlabored. room secure, sitter monitoring from [facility] for safety.
--- NOTE | 2020-11-01 09:18 | NUR ---
TASK RN: ATTEMPTED TO DO MED REC AT THIS TIME. PT STATES "I GO GET MY PRESCRIPTIONS AND THEN TAKE ALL THE PILLS AT ONCE." PT STATES SHE CANNOT REMEMBER WHAT PRESCRIPTIONS SHE GETS OR MEDICATIONS SHE TAKES.
--- NOTE | 2020-11-01 10:01 | NUR ---
pt provided with am si meal tray, consumed 100% without difficulty. pt up to void with steady gait, now back in bed. pt groaning stating that she has bilateral upper back and neck pain, chronic in nature. pt states this chronic pain is reason for si, stating that she cannot tolerate it any longer. pt unable to state what pain medication usually works for her. pt endorses feelings of SI with plan to walk in traffic or jump in river. pt is a&ox4, resps even and unlabored, neurologically intact. pt denies bowel/bladder disfunction. pt resting on hospital bed, room secure, sitter monitoring from [facility] for safety.
--- NOTE | 2020-11-01 10:16 | NUR ---
PT AMBULATED WITH TECH ASSIST AT REQUEST, THEN C/O BACK SPASMS AND CHRONIC BACK/NECK PAIN DURING WALK. REQUESTING PAIN MED, GROANING AND REFUSING TO GET BACK IN BED. PT UP TO CHAIR, SITTER BESIDE PT FOR SAFETY. EDMD VANBIBBER NOTIFIED. MEDS ORDERED.
[2020-11-01] MEDS ORDERED: CYCLOBENZAPRINE 10 MG TABLET ONE (10:20)
[2020-11-01] MEDS ORDERED: IBUPROFEN 600 MG TABLET ONE ×2 (10:20→19:38)
[2020-11-01] MEDS ORDERED: PLEASE ENTER HEIGHT AND WEIGHT MC SCH (10:30)
[2020-11-01] MEDS ORDERED: CYCLOBENZAPRINE 10 MG TABLET PO ONE (10:30)
[2020-11-01] MEDS ORDERED: IBUPROFEN 600 MG TABLET PO ONE (10:30)
--- NOTE | 2020-11-01 13:15 | NUR ---
REPORT GIVEN TO PRABHU MCDANIELS AT BEDSIDE, PT EATING SI LUNCH TRAY. PT AWAKE, ALERT, NO COMPLAINT. ROOM SECURE, SITTER MONITORING FROM [facility] FOR SAFETY.
--- NOTE | 2020-11-01 13:19 | NUR ---
PT RESTING IN RTHERMAL WITH EYES CLOSED, NADN AT THIS TIME, WCTM. SITTER WITHIN DIRECT LINE OF SIGHT FOR SAFETY.
[2020-11-01 13:42] VITALS: BP 124/83
--- NOTE | 2020-11-01 18:16 | NUR ---
REPORT GIVEN TO JOHAN AT [facility] AT THIS TIME. PER JOHAN PT WILL BE ACCEPTED THERE.
--- NOTE | 2020-11-01 18:46 | NUR ---
REPORT GIVEN TO PRABHU PAREDES.
--- NOTE | 2020-11-01 18:46 | NUR ---
ACCEPTED BY DR. ALEXANDER AT [facility].
--- NOTE | 2020-11-01 18:56 | NUR ---
report from Richa frankreduction furnace operator helper of care, PT RESTING ON HOSPITAL BED SITTER IN SIGHT BROOK.
--- NOTE | 2020-11-01 19:22 | NUR ---
[facility] CONTACTED FOR TRANSPORT
--- NOTE | 2020-11-01 19:43 | NUR ---
PT MEDICATED PER MAR FOR PAIN.
[2020-11-01] MEDS ORDERED: IBUPROFEN 200 MG TABLET PO ONE (20:00)
--- NOTE | 2020-11-01 20:34 | NUR ---
PT RESTING ON HOSPITAL BED AWAITING TRANSPORT TO [facility], SITTER REMAINS IN SIGHT.
== END 2020-11-01 21:24 ==
LOC: ED 03:03
DX: R45.851 Suicidal ideations (principal); F17.210 Nicotine dependence, cigarettes, uncomplicated; I10 Essential (primary) hypertension; G40.909 Epilepsy, unspecified, not intractable, without status epilepticus; Z90.49 Acquired absence of other specified parts of digestive tract
CPT/HCPCS: 36415; 80053; 80299; 80307; 80320; 80329; 81001; 84703; 85025; 99406; G0480

== ENCOUNTER 2020-11-15 17:30 | Emergency (ER) | payer MEDICAID ==
[~2020-11-15] VITALS: Ht 162.6 cm; Wt 80.0 kg
--- NOTE | 2020-11-15 17:45 | NUR ---
radha from [facility] where staff found pt agiated and with body twitches. pt was seen at [facility] to day for unknown reasons. pt admits to using meth daily. hx of ms. pt states ms is making her have muslce spasms and is hurting her neck. pt aaox4 and follows commands. pt states "some kyle keeps on giving me meth saying it will help with my pain. he knows i have a disability of a 4th grader". pt attached to monitors. vss. awaiting orders.
[2020-11-15] MEDS ORDERED: LORazepam 2 MG/ML, 1ML IM ONE (18:00)
[2020-11-15] MEDS ORDERED: LORazepam 2 MG/ML, 1ML ONE (18:01)
--- NOTE | 2020-11-15 18:19 | NUR ---
pt asleep with even and unlabored respirations.
--- NOTE | 2020-11-15 18:57 | NUR ---
BEDSIDE REPORT RECEIVED BY PRABHU JAQUEZ
--- NOTE | 2020-11-15 19:03 | NUR ---
PT RESTING COMFORTABLY ON GURNEY, DENIES NEEDS AT THIS TIME, PT'S BELONGINGS AND CALL LIGHT AT BEDSIDE
[2020-11-15 21:03] VITALS: BP 124/76
--- NOTE | 2020-11-15 21:13 | NUR ---
PT UPRIGHT ON GURNEY, GETTING DRESSED. PT REPORTS FEELING BETTER. AMBULATORY WITH STEADY GAIT. AWAITING D/C.
--- NOTE | 2020-11-15 21:17 | NUR ---
Patient given discharge instructions and they have confirmed that they understand the instructions. Patient ambulatory with steady gait. No s/s of distress
== END 2020-11-15 21:20 | disposition home or self-care (01) ==
LOC: ED 17:53 → MERGE 17:53 → ED 21:20
DX: F15.159 Other stimulant abuse with stimulant-induced psychotic disorder, unspecified (principal)
CPT/HCPCS: 96372; 99285; J2060

== ENCOUNTER 2020-12-23 00:33 | Inpatient (IN) | payer MEDICAID ==
[~2020-12-23] VITALS: Ht 165.1 cm; Wt 80.0 kg
[2020-12-23] MEDS ORDERED: LORazepam 2 MG/ML, 1ML ONE (00:38)
[2020-12-23 00:55] LABS: BASOPHILS % (AUTO) 1 % (0-1); EOSINOPHILS % (AUTO) 2 % (1-7); LYMPHOCYTES % (AUTO) 26 % (22-44); MEAN CORPUSCULAR HEMOGLOBIN 27.2 pg (27.0-34.8); MEAN CORPUSCULAR HGB CONC 33.8 g/dL (32.4-35.8); MEAN PLATELET VOLUME 6.9 fL (7.4-10.4); MONOCYTES % (AUTO) 9 % (2-9); NEUTROPHILS % (AUTO) 62 % (42-75); PLATELET COUNT 423 x10^3/uL (130-400); RED CELL DISTRIBUTION WIDTH 16.8 % (9.6-15.2)
[2020-12-23] MEDS ORDERED: SODIUM CHLORIDE 0.9% 1,000ML IVBOLUS ONE (01:00)
[2020-12-23] MEDS ORDERED: SODIUM CHLORIDE FLUSH 10ML SYR IVF ONE (01:00)
[2020-12-23] MEDS ORDERED: LORazepam 2 MG/ML, 1ML IVPush ONE (01:00)
--- NOTE | 2020-12-23 01:00 | NUR ---
PT BIB [facility] FOR SEIZURES. PT HAD 5 MG VERSED IN ROUTE. PT IS LETHARGIC. PT ABLE TO SIT UP TO CHANGE INTO GOWN. PT IS BEING PLACED ON CONTINUOUS MONITORING, PT BEGINS TO SEIZE AGAIN. ANOTHER 5 MG VERSED IM GIVEN TO PT VIA [facility]. PT PLACED ON NON REBREATHER MASK AT 16 L AND SUCTION IS AT BEDSIDE. ERP AT BEDSIDE. 18 G IV PLACED IN RIGHT FOREARM, WITH LABS DRAWN AND 1 MG ATIVAN GIVEN PER EMAR. IVF RUNNING. CXR WAS PERFORMED. PT RESTING ON [facility]
[2020-12-23 01:02] LABS: ALANINE AMINOTRANSFERASE 28 U/L (12-78); ALBUMIN 3.4 g/dL (3.4-5.0); ANION GAP 8 mmol/L (5-15); CALCIUM 8.2 mg/dL (8.5-10.1); CHLORIDE 112 mmol/L (98-107); CREATININE 0.61 mg/dL (0.55-1.02); SALICYLATE LEVEL < 1.7 mg/dL (2.8-20.0)
--- NOTE | 2020-12-23 01:05 | NUR ---
PT TO CT
[2020-12-23 01:07] LABS: ALKALINE PHOSPHATASE 71 U/L (45-117); BILIRUBIN,TOTAL 0.2 mg/dL (0.2-1.0); TOTAL PROTEIN 7.1 g/dL (6.4-8.2); TROPONIN I < 0.015 ng/mL (0.000-0.045)
--- NOTE | 2020-12-23 01:25 | NUR ---
pt back from ct, pt straight cathed for ua sample, sample collected and sent lab.
[2020-12-23 01:39] LABS: MICROSCOPIC INDICATED
[2020-12-23 01:46] LABS: AMPHETAMINE SCREEN, URINE Positive (Negative); BARBITURATE SCREEN, URINE Negative (Negative); BENZODIAZEPINE SCREEN, URINE Positive (Negative); CANNABINOID SCREEN, URINE Positive (Negative); COCAINE SCREEN, URINE Negative (Negative); METHADONE SCREEN, URINE Negative (Negative); OPIATE SCREEN, URINE Negative (Negative)
--- NOTE | 2020-12-23 02:07 | NUR ---
pt resting on gurney, denies needs at this time.
[2020-12-23] MEDS ORDERED: TRAZODONE 50MG TABLET PO PRN (03:00)
[2020-12-23] MEDS ORDERED: GABAPENTIN 300 MG CAPSULE PO PRN (03:00)
[2020-12-23] MEDS ORDERED: ENALAPRILAT 1.25 MG/ML, 2ML IVPush PRN (03:00)
[2020-12-23] MEDS ORDERED: ACETAMINOPHEN 325 MG TABLET PO PRN (03:00)
[2020-12-23] MEDS ORDERED: LORazepam 2 MG/ML, 1ML IVPush PRN (03:00)
[2020-12-23] MEDS ORDERED: ONDANSETRON 2MG/ML, 2ML IVPush PRN (03:00)
[2020-12-23] MEDS ORDERED: GUAIFENESIN/DM 200-20MG, 10ML UDC PO PRN (03:00)
[2020-12-23] MEDS ORDERED: LACTATED RINGERS 1,000 ML IV SCH (03:00)
[2020-12-23] MEDS ORDERED: DOCUSATE 100 MG CAPSULE PO PRN (03:00)
--- NOTE | 2020-12-23 03:25 | NUR ---
pt resting on gurney, denies needs at this time.
--- NOTE | 2020-12-23 03:39 | NUR ---
Pt to be admitted to Neuro Tele, room 491-2. Report called to PRABHU Apple.
[2020-12-23 04:00] VITALS: BP 100/56
[2020-12-23] MEDS ORDERED: CYCL10TA2 PO (04:28)
[2020-12-23] MEDS ORDERED: BENZ1TAB61 PO (04:28)
[2020-12-23] MEDS ORDERED: HALO5TAB5 PO (04:28)
[2020-12-23] MEDS ORDERED: LEVE500T8 PO (04:28)
[2020-12-23] MEDS: ENOXAPARIN 40 MG/0.4 ML SQ SCH (05:36)
[2020-12-23 06:40] VITALS: BP 125/87
[2020-12-23] MEDS ORDERED: LEVETIRACETAM 1,000 MG in SODIUM CHLORIDE 0.9% 100 ML IV ONE (08:30)
[2020-12-23] MEDS: LEVETIRACETAM 500 MG TABLET PO SCH ×2 (09:24→20:42)
[2020-12-23 12:41] VITALS: BP 137/80
[2020-12-23 12:43] VITALS: BP 119/82
[2020-12-23 18:42] VITALS: BP 117/81
[2020-12-24] MEDS: ENOXAPARIN 40 MG/0.4 ML SQ SCH (05:39)
[2020-12-24 05:56] LABS: BASOPHILS % (AUTO) 1 % (0-1); EOSINOPHILS % (AUTO) 2 % (1-7); LYMPHOCYTES % (AUTO) 35 % (22-44); MEAN CORPUSCULAR HGB CONC 33.4 g/dL (32.4-35.8); MEAN PLATELET VOLUME 7.1 fL (7.4-10.4); MONOCYTES % (AUTO) 6 % (2-9); NEUTROPHILS % (AUTO) 57 % (42-75); PLATELET COUNT 362 x10^3/uL (130-400); RED BLOOD COUNT 3.74 x10^6/uL (3.82-5.3); RED CELL DISTRIBUTION WIDTH 16.8 % (9.6-15.2)
[2020-12-24 06:04] LABS: ANION GAP 6 mmol/L (5-15); CALCIUM 7.9 mg/dL (8.5-10.1); CHLORIDE 110 mmol/L (98-107)
[2020-12-24 06:08] LABS: CREATININE 0.31 mg/dL (0.55-1.02)
[2020-12-24] MEDS ORDERED: LEVE500T8 PO (09:01)
[2020-12-24] MEDS: LEVETIRACETAM 500 MG TABLET PO SCH (09:20)
[2020-12-24] MEDS ORDERED: POTASSIUM CHLORIDE 20 MEQ TAB.ER.PRT PO ONE (09:30)
== END 2020-12-24 14:46 | disposition home or self-care (01) | DRG 101 ==
LOC: ED 03:07 → EDIP 03:11 → 4EST 03:46 → DCLOUNGE 12-24 14:37
PROVIDERS: ADMIT Internal Medicine; ATTEND Internal Medicine
DX: G40.909 Epilepsy, unspecified, not intractable, without status epilepticus (principal); D64.9 Anemia, unspecified; E87.8 Other disorders of electrolyte and fluid balance, not elsewhere classified; F12.10 Cannabis abuse, uncomplicated; F13.10 Sedative, hypnotic or anxiolytic abuse, uncomplicated; F15.10 Other stimulant abuse, uncomplicated; F25.0 Schizoaffective disorder, bipolar type; I10 Essential (primary) hypertension; Z91.14 Patient's other noncompliance with medication regimen; Z88.5 Allergy status to narcotic agent; Z88.0 Allergy status to penicillin; Z88.8 Allergy status to other drugs, medicaments and biological substances
CPT/HCPCS: 36415; 70450; 71045; 80048; 80053; 80299; 80307; 80320; 80329; 81001; 84484; 84703; 85025; 93005; 96374; G0378; J1650; J1953; G0480; J2060; J7030; J7120

== ENCOUNTER 2021-02-17 14:43 | Emergency (ER) | payer MEDICAID ==
[~2021-02-17] VITALS: Ht 162.6 cm; Wt 73.0 kg
[~2021-02-17 14:43] MED LIST changes: +BENZ1TAB61 PO; +HALO5TAB5 PO; +LEVE500T8 PO
--- NOTE | 2021-02-17 14:50 | NUR ---
MALLIKA FROM STREET FOR C/O SOB AND COUGH, SPO2 87% RA, PLACED ON 2L [employer] COMMISSION ASSOCIATE NOW 96%. HX PSYCH AND CHRONIC BACK PAIN. REPORTS USING SMOKING METH 30 MINUTES AGO. PLACED ON VITALS MONITORS, FALL PRECAUTIONS IN PLACE. CALL LIGHT PLACED WITHIN REACH.
[2021-02-17] MEDS ORDERED: LORazepam 2 MG/ML, 1ML ONE (15:23)
[2021-02-17] MEDS ORDERED: LORazepam 2 MG/ML, 1ML IVPush ONE (15:30)
[2021-02-17 15:31] LABS: BASOPHILS % (AUTO) 1 % (0-1); EOSINOPHILS % (AUTO) 1 % (1-7); LYMPHOCYTES % (AUTO) 27 % (22-44); MEAN CORPUSCULAR HEMOGLOBIN 26.4 pg (27.0-34.8); MEAN CORPUSCULAR HGB CONC 34.1 g/dL (32.4-35.8); MEAN PLATELET VOLUME 6.5 fL (7.4-10.4); MONOCYTES % (AUTO) 10 % (2-9); NEUTROPHILS % (AUTO) 61 % (42-75); PLATELET COUNT 391 x10^3/uL (130-400); RED BLOOD COUNT 4.17 x10^6/uL (3.82-5.3); RED CELL DISTRIBUTION WIDTH 15.9 % (9.6-15.2)
[2021-02-17 15:48] LABS: ANION GAP 6 mmol/L (5-15); CALCIUM 7.9 mg/dL (8.5-10.1); CHLORIDE 105 mmol/L (98-107)
[2021-02-17 15:49] LABS: ALBUMIN 2.7 g/dL (3.4-5.0)
--- NOTE | 2021-02-17 16:18 | NUR ---
PT SLEEPING IN NAD, VSS. RA SAT 95%.
[2021-02-17 16:45] LABS: AMPHETAMINE SCREEN, URINE Positive (Negative); BARBITURATE SCREEN, URINE Negative (Negative); BENZODIAZEPINE SCREEN, URINE Negative (Negative); CANNABINOID SCREEN, URINE Negative (Negative); COCAINE SCREEN, URINE Negative (Negative); METHADONE SCREEN, URINE Negative (Negative); OPIATE SCREEN, URINE Negative (Negative)
[2021-02-17 18:22] VITALS: BP 127/80
--- NOTE | 2021-02-17 18:25 | NUR ---
C/O NECK PAIN. WILL UPDATE ERMD.
[2021-02-17] MEDS ORDERED: ACETAMINOPHEN 500 MG TABLET ONE (18:27)
[2021-02-17] MEDS ORDERED: ACETAMINOPHEN 325 MG TABLET PO ONE (18:30)
--- NOTE | 2021-02-17 18:37 | NUR ---
MEDICATED PT PER MAR, ATTEMPT TO REVIEW DC INSTRUCTION WITH PT, PT NOW STATES SHE WANTS TO KILL HERSELF AND JUMP OVER THE BRIDGE. WILL UPDATE ERMD.
--- NOTE | 2021-02-17 18:43 | NUR ---
DISCUSSED WITH DR. MEJIA THAT PT NOW STATES SHE WANTS TO KILL HERSELF, PER HE WILL GO IN TO SEE HER.
--- NOTE | 2021-02-17 19:01 | NUR ---
GIVEN DC INFO/EDUCATION. VAN BIBBER BEDSIDE TO ASSESS PT REGARDING SI THREAT. PT DENIES AT THIS TIME, CLEARED BY MD FOR DISCHARGE. WHEELED TO DC WINDOW GIVEN BUS PASS.
== END 2021-02-17 19:00 | disposition home or self-care (01) ==
LOC: ED 15:14
DX: U07.1 COVID-19 (principal); J12.82 Pneumonia due to coronavirus disease 2019; F15.129 Other stimulant abuse with intoxication, unspecified; G40.909 Epilepsy, unspecified, not intractable, without status epilepticus; I10 Essential (primary) hypertension; Z90.49 Acquired absence of other specified parts of digestive tract
CPT/HCPCS: 36415; 71045; 80048; 80307; 82040; 85025; 93005; 96374; 99285; J2060

== ENCOUNTER 2021-03-05 01:54 | Observation (INO) | payer MEDICAID ==
[~2021-03-05] VITALS: Ht 160 cm; Wt 77.7 kg
[~2021-03-05 01:54] MED LIST changes: +OXYC1TAB12 PO; -OXYC1TAB14 PO
[2021-03-05] MEDS ORDERED: ZIPRASIDONE 20 MG INJ IM ONE ×2 (02:15→02:30)
--- NOTE | 2021-03-05 02:26 | NUR ---
PT BIB EMS FROM [facility]. PT IS VERY JIDDERY, UNABLE TO STOP MOVING AND MOANING. PT RECIEVED 3MG VERSED ENROUTE WITH NO RESULTS, PER EMS. WHEN THIS RN IS ABLE TO UNDERSTAND PT SHE CONTINUES TO STATE "I WAS IN A LOT OF PAIN, I DID SOME METH". PT DIAPHORESTIC AND UNABLE TO GET PT TO COOPERATE AND GET FULL VITALS. MD ASSESSED PT AND PT WAS MEDICATED PER EMAR. ERP AWARE OF ALLERGY TO GEODON, CHART SHOWS ACUTE DYSTONIA FROM PREVIOUS VISIT. ERP STATES TO MONITOR PT. PT CURRENTLY IN ROOM UNABLE TO GET PT TO SIT STILL OR FOLLOW ANY COMMANDS. WILL CONTINUE TO MONITOR. REPORT GIVEN TO JENA PELLETIER.
[2021-03-05 03:16] LABS: BASOPHILS % (AUTO) 1 % (0-1); EOSINOPHILS % (AUTO) 2 % (1-7); LYMPHOCYTES % (AUTO) 20 % (22-44); MEAN CORPUSCULAR HEMOGLOBIN 26.5 pg (27.0-34.8); MEAN CORPUSCULAR HGB CONC 33.2 g/dL (32.4-35.8); MEAN PLATELET VOLUME 6.6 fL (7.4-10.4); MONOCYTES % (AUTO) 8 % (2-9); NEUTROPHILS % (AUTO) 69 % (42-75); PLATELET COUNT 435 x10^3/uL (130-400); RED BLOOD COUNT 3.76 x10^6/uL (3.82-5.3); RED CELL DISTRIBUTION WIDTH 16.9 % (9.6-15.2)
[2021-03-05 03:26] LABS: ALANINE AMINOTRANSFERASE 40 U/L (12-78); ALBUMIN 2.9 g/dL (3.4-5.0); ANION GAP 3 mmol/L (5-15); CHLORIDE 113 mmol/L (98-107)
[2021-03-05 03:31] LABS: ALKALINE PHOSPHATASE 59 U/L (45-117); BILIRUBIN,TOTAL 0.3 mg/dL (0.2-1.0); CREATININE 0.37 mg/dL (0.55-1.02); TOTAL PROTEIN 6.8 g/dL (6.4-8.2)
[2021-03-05 03:44] LABS: SALICYLATE LEVEL < 1.7 mg/dL (2.8-20.0)
--- NOTE | 2021-03-05 04:39 | NUR ---
PT RESTING COMFORTABLY. MORE COOPERATIVE AND CALM AFTER IM MED ADMINISTRATION
--- NOTE | 2021-03-05 05:00 | NUR ---
Pt resting comfortably. Sleeping at this time. Denies needs.
--- NOTE | 2021-03-05 06:00 | NUR ---
PT CONTINUES TO SLEEP AT THIS TIME. VITALS STABLE. PT NOT CLINICALLY SOBER FOR DISCHARGE AT THIS PERIOD OF TIME.
--- NOTE | 2021-03-05 06:52 | NUR ---
REPORT GIVEN TO PRABHU HUGO
[2021-03-05 10:22] VITALS: BP 130/86
== END 2021-03-05 10:28 | disposition home or self-care (01) ==
LOC: ED 03:40 → INTOOBSV 04:05 → EDIP 04:05
PROVIDERS: ADMIT Emergency Medicine; ATTEND Emergency Medicine
DX: G92 Toxic encephalopathy (principal); F15.159 Other stimulant abuse with stimulant-induced psychotic disorder, unspecified; F17.200 Nicotine dependence, unspecified, uncomplicated; I10 Essential (primary) hypertension; F41.8 Other specified anxiety disorders; G40.909 Epilepsy, unspecified, not intractable, without status epilepticus; T43.625A Adverse effect of amphetamines, initial encounter; Z63.8 Other specified problems related to primary support group; Z79.899 Other long term (current) drug therapy
CPT/HCPCS: 36415; 80053; 80299; 80320; 80329; 84703; 85025; 96372; 99284; G0378; J3486; G0480